=== PATIENT | female | born 1965 | race Two or more races ===

== ENCOUNTER 2020-01-16 18:14 | Inpatient (IN) | payer BC ==
[~2020-01-16] VITALS: Ht 165.1 cm; Wt 72.1 kg
[2020-01-16 18:46] VITALS: BP 103/58
--- NOTE | 2020-01-16 18:52 | NUR ---
ED Nurse Note: Patient walked in to ER from home due to upper abd pain, N/V, denyed diarrhea. Patient stated has fever on and off for one week. Patient presented weak, AAO x4, VSS at this time, skin is dry warm to touch. ER MD at bed side.
--- NOTE | 2020-01-16 18:58 | Emergency Room Report ---
History of Present Illness General Chief Complaint: Nausea Source: Patient Present Illness HPI Patient is a 54-year-old female who presents after increased right-sided abdominal pain. Reports of increased dysuria. States that she is postmenopausal. Denies any recent sick contacts. Reports having worsening abdominal discomfort and subjective fever. States has been sick for approximately 3 days. Allergies: Coded Allergies: No Known Allergies (Verified Allergy, Unknown, 12/16/09) COVID-19 Screening Contact w/high risk pt: No Recent Travel to affected area: No Experienced COVID-19 symptoms?: Yes COVID-19 symptoms experienced: Fever (T>100.4F or >38C), Flu-Like Symptoms COVID-19 Testing performed BRAND DEVELOPMENT MANAGER: No Patient History Past Medical History: see triage record Last Menstrual Period: UNK Now: No Reviewed Nursing Documentation: PMH: Agreed; PSxH: Agreed Nursing Documentation-PMH Past Medical History: No Stated History Review of Systems All Other Systems: negative except mentioned in HPI Physical Exam Vital Signs Date Time Temp Pulse Resp B/P (MAP) Pulse Ox O2 Delivery O2 Flow Rate FiO2 01/16/20 18:35 99.1 101 16 103/58 (73) 97 Room Air Sp02 EP Interpretation: reviewed, normal General Appearance: normal inspection, well appearing, no apparent distress, alert, GCS 15 Head: atraumatic ENT: normal ENT inspection, hearing grossly normal, normal voice Neck: normal inspection, full range of motion, supple, no bony tend Respiratory: normal inspection, lungs clear, normal breath sounds, no respiratory distress, no retraction, no wheezing Cardiovascular #1: regular rate, rhythm, no edema Gastrointestinal: normal inspection, normal bowel sounds, non tender, soft, no guarding, no hernia Genitourinary: no CVA tenderness Musculoskeletal: normal inspection, back normal, normal range of motion Neurologic: alert, motor strength/tone normal, dining service supervisor III-XII nml as tested, oriented x3, responsive, speech normal, normal inspection Psychiatric: normal inspection, judgement/insight normal, mood/affect normal Medical Decision Making Diagnostic Impression: Primary Impression: Pyelonephritis ER Course Patient presented for abdominal pain. Differential diagnoses included ischemic bowel, appendicitis, perforated viscus, abdominal aortic aneurysm, inferior myocardial infarction, viral gastroenteritis among others.Because patient's complexity imaging studies, and laboratory testing ordered. Patient was given IV fluids as well as IV antiemetics. Laboratory testing showed . Electrolytes normal Lipase was normal White blood count was slightly elevated. CT of the abdomen pelvis showed: Right-sided renal mass versus pyelonephritis no findings to suggest acute appendicitis irregular heterogeneous uterus with endometrial thickening bladder wall thickening which may represent cystitis. Dr. Sahu was contacted for inpatient management due to panel physician. Labs Test 01/16/20 19:12 White Blood Count 14.1 K/UL (4.8-10.8) Red Blood Count 5.59 M/UL (4.20-5.40) Hemoglobin 9.3 G/DL (12.0-16.0) Hematocrit 33.3 % (37.0-47.0) Mean Corpuscular Volume 60 FL (80-99) Mean Corpuscular Hemoglobin 16.6 PG (27.0-31.0) Mean Corpuscular Hemoglobin Concent 27.9 G/DL (32.0-36.0) Red Cell Distribution Width 18.3 % (11.6-14.8) Platelet Count 333 K/UL (150-450) Mean Platelet Volume 7.4 FL (6.5-10.1) Neutrophils (%) (Auto) % (45.0-75.0) Lymphocytes (%) (Auto) % (20.0-45.0) Monocytes (%) (Auto) % (1.0-10.0) Eosinophils (%) (Auto) % (0.0-3.0) Basophils (%) (Auto) % (0.0-2.0) Prothrombin Time 11.8 SEC (9.30-11.50) Prothromb Time International Ratio 1.1 (0.9-1.1) Activated Partial Thromboplast Time 30 SEC (23-33) Urine Color Yellow Urine Appearance Slightly cloudy Urine pH 6 (4.5-8.0) Urine Specific [place] 1.020 (1.005-1.035) Urine Protein 3+ (NEGATIVE) Urine Glucose (UA) 4+ (NEGATIVE) Urine Ketones 4+ (NEGATIVE) Urine Blood 5+ (NEGATIVE) Urine Nitrite Negative (NEGATIVE) Urine Bilirubin Negative (NEGATIVE) Urine Urobilinogen 4 MG/DL (0.0-1.0) Urine Leukocyte Esterase 2+ (NEGATIVE) Urine RBC 20-30 /HPF (0 - 2) Urine WBC 10-15 /HPF (0 - 2) Urine Squamous Epithelial Cells Moderate /LPF (NONE/OCC) Urine Bacteria Moderate /HPF (NONE) Sodium Level 134 MMOL/L (136-145) Potassium Level 4.3 MMOL/L (3.5-5.1) Chloride Level 93 MMOL/L (98-107) Carbon Dioxide Level 24 MMOL/L (21-32) Anion Gap 17 mmol/L (5-15) Blood Urea Nitrogen 20 mg/dL (7-18) Creatinine 0.9 MG/DL (0.55-1.30) Estimat Glomerular Filtration Rate > 60 mL/min (>60) Glucose Level 352 MG/DL (74-106) Calcium Level 10.0 MG/DL (8.5-10.1) Total Bilirubin 0.6 MG/DL (0.2-1.0) Aspartate Amino Transf (AST/SGOT) 20 U/L (15-37) Alanine Aminotransferase (ALT/SGPT) 22 U/L (12-78) Alkaline Phosphatase 141 U/L (46-116) Total Protein 8.4 G/DL (6.4-8.2) Albumin 2.6 G/DL (3.4-5.0) Globulin 5.8 g/dL Albumin/Globulin Ratio 0.4 (1.0-2.7) Lipase 245 U/L (73-393) Last Vital Signs Date Time Temp Pulse Resp B/P (MAP) Pulse Ox O2 Delivery O2 Flow Rate FiO2 01/16/20 18:46 99.1 16 103/58 97 Room Air 01/16/20 18:35 101 Status: unchanged Disposition: ADMITTED INPATIENT Condition: Stable Referrals: NOT CHOSEN IPA/,REFERRING (PCP) Дмитрий Mcallister MD Jan 16, 2020 18:58
[2020-01-16] MEDS ORDERED: Omnipaque-300 100ml vial INJ PRN (19:00)
--- NOTE | 2020-01-16 19:17 | NUR ---
ED Nurse Note: Report recieved from BRY Coreas.
--- NOTE | 2020-01-16 19:17 | NUR ---
ED Nurse Note: Blood and urine sample collected and sent to lab.
[2020-01-16 19:46] LABS: INR 1.1 (0.9-1.1)
[2020-01-16 19:48] LABS: ANION GAP 17 mmol/L (5-15); BLOOD UREA NITROGEN 20 mg/dL (7-18); CARBON DIOXIDE 24 MMOL/L (21-32); CHLORIDE 93 MMOL/L (98-107); CREATININE 0.9 MG/DL (0.55-1.30); POTASSIUM 4.3 MMOL/L (3.5-5.1); SODIUM 134 MMOL/L (136-145)
[2020-01-16 19:51] LABS: APPEARANCE,URINE SLIGHTLY CLOUDY; BILIRUBIN, URINE NEGATIVE (NEGATIVE); NITRITE,URINE NEGATIVE (NEGATIVE)
[2020-01-16 19:54] LABS: ALANINE AMINOTRANSFERASE 22 U/L (12-78); ALBUMIN 2.6 G/DL (3.4-5.0); ALBUMIN/GLOBULIN RATIO 0.4 (1.0-2.7); ALKALINE PHOSPHATASE 141 U/L (46-116); ASPARTATE AMINO TRANSFERASE 20 U/L (15-37); BILIRUBIN,TOTAL 0.6 MG/DL (0.2-1.0)
[2020-01-16 20:05] LABS: GLUCOSE, URINE (UA) 4+ (NEGATIVE); KETONES,URINE 4+ (NEGATIVE); LEUKOCYTE ESTERASE ,URINE 2+ (NEGATIVE); PH,URINE 6 (4.5-8.0); PROTEIN,URINE 3+ (NEGATIVE); UROBILINOGEN,URINE 4 MG/DL (0.0-1.0)
[2020-01-16 20:13] LABS: HEMATOCRIT 33.3 % (37.0-47.0); HEMOGLOBIN 9.3 G/DL (12.0-16.0); MEAN CORPUSCULAR VOLUME 60 FL (80-99); PLATELET COUNT 333 K/UL (150-450); RED BLOOD COUNT 5.59 M/UL (4.20-5.40); RED CELL DISTRIBUTION WIDTH 18.3 % (11.6-14.8); WHITE BLOOD COUNT 14.1 K/UL (4.8-10.8)
--- NOTE | 2020-01-16 20:13 | NUR ---
ED Nurse Note: PT taken to CT via WC.
--- NOTE | 2020-01-16 20:25 | NUR ---
ED Nurse Note: PT Returned back from CT
[2020-01-16 20:30] LABS: COLOR,URINE YELLOW
[2020-01-16] MEDS ORDERED: Piperacillin/Tazobactam 3.375 GM in NS 110 ML IVPB ONE (20:30)
[2020-01-16] MEDS ORDERED: cefTRIAXone 1 GM in NS 55 ML IVPB ONE (20:45)
[2020-01-16 20:59] VITALS: BP 110/60
--- NOTE | 2020-01-16 20:59 | NUR ---
ED Nurse Note: pt seen in bed resting, no acute distress is noted. VSS as documented
--- NOTE | 2020-01-16 21:04 | Diagnostic Imaging Report ---
EXAM: CT Abdomen and Pelvis With Intravenous Contrast CLINICAL HISTORY: ABD PAIN TECHNIQUE: Axial computed tomography images of the abdomen and pelvis with intravenous contrast. CTDI is 7 mGy and DLP is 415 mGy-cm. One or more of the following dose reduction techniques were used: automated exposure control, adjustment of the mA and/or kV according to patient size, use of iterative reconstruction technique. COMPARISON: 12/15/09, report for images was not provided. FINDINGS: Artifacts: Mildly degraded by motion. Lung bases: Unremarkable. No mass. No consolidation. ABDOMEN: Liver: Somewhat lobular marginated low attenuation lesion in the posterior inferior right hepatic lobe is without significant change. Gallbladder and bile ducts: Unremarkable. No calcified stones. No ductal dilation. Pancreas: Unremarkable. No mass. No ductal dilation. Spleen: Splenomegaly with the spleen measuring up to 15 cm in long axis. Adrenals: Unremarkable. No mass. Kidneys and ureters: A round lesion in the medial left lower renal pole measuring 29 mm is slightly hyperattenuating to water density measuring approximately 33 HU. There is an irregular region of low attenuation in the anterior mid and left lower renal pole that is indeterminate for irregularity due to pyelonephritis or a solid mass. Area of abnormality extends a significant region of the left kidney. There is adjacent, associated mild stranding in the adjacent perinephric region. No hydronephrosis. Stomach and bowel: Unremarkable. No obstruction. No mucosal thickening. PELVIS: Appendix: No findings to suggest acute appendicitis. Bladder: Bladder wall thickening with reticulation is present. Reproductive: The uterus is diffusely heterogeneous. The central portion including the region of the endometrium is also significantly heterogeneous with what appears to be endometrial thickening measuring up to 31 mm. Endometrial mass cannot be excluded. Recommend nonemergent pelvic ultrasound and GROUP THERAPIST consultation. ABDOMEN and PELVIS: Intraperitoneal space: Unremarkable. No free air. No significant fluid collection. Bones/joints: No acute fracture. No dislocation. Soft tissues: Unremarkable. Vasculature: Unremarkable. No abdominal aortic aneurysm. Lymph nodes: Unremarkable. No enlarged lymph nodes. IMPRESSION: 1. Moderate to large area of irregular low attenuation in the left kidney with adjacent perinephric stranding. Findings may reflect a region of pyelonephritis. Mass lesion cannot be excluded. The only clinical information provided was "pain". Follow-up renal protocol imaging is recommended as mass lesion cannot be excluded. Apparently cystic lesion left kidney can also be evaluated with dedicated renal protocol imaging. 2. Irregular heterogeneous uterus with endometrial thickening with recommendation for nonemergent GROUP THERAPIST consultation and pelvic ultrasound. 3. Bladder wall thickening with reticulation is indeterminate but may reflect cystitis for which laboratory and clinical correlation is required. <MYCVCSECTION> Communications: 01/16/20 21:07 Verify Receipt Verified receipt with NII Sue going to Dr Mcallister on 01/15 21:07 (-07:00)
--- NOTE | 2020-01-16 23:11 | NUR ---
ED Nurse Note: report given to BRY felder. endorsed plan of care.
--- NOTE | 2020-01-16 23:23 | NUR ---
ED Nurse Note: Received report from BRY Booker. patient in [facility] complaining of no distress at this moment, will continue to monitor
[2020-01-16 23:41] VITALS: BP 118/70
[2020-01-17] VITALS (7 sets, daily range): BP systolic 107–121; BP diastolic 45–73
--- NOTE | 2020-01-17 00:38 | NUR ---
ED Nurse Note: PATIENT AMBULATED TO BATHROOM WITH STEADY GAIT. PATIENT BACK IN TO BED WITHOUT INCIDENT. REPOSITIONED FOR COMFORT; PROVIDED WITH WARM BLANKETS AND PILLOWS. WILL CONTINUE TO MONITOR.
--- NOTE | 2020-01-17 01:26 | NUR ---
NURSE NOTES: Received report from Torito Qiuntanilla, ED RN. Pt arrived in the unit at 0141 via [place]. Pt's VS is stable at arrival. AOx4; able to make needs known. Yakut speaking but can understand and speak [place]. Patient's belongings checked off and signed by the patient and the primary RN. Pt denies any pain at this time. No signs of acute distress noted. Pt is stable on the feet and is able to go to the restroom by herself. Checked IV site; patent and flushed. No erythema, bleeding, or infiltration noted. Bed at lowest position. Brakes on. Siderails up x3. Call light within reach. Pt oriented to the room. Will continue to monitor.
[2020-01-17] MEDS ORDERED: Milk of Magnesia 30ml Ud ORAL PRN (01:30)
--- NOTE | 2020-01-17 01:30 | NUR ---
TRANSFER TO FLOOR: Patient transferred to [facility] 314-1 as ordered, per roseann sanches. Report given to raulito marroquin. Patient in stable condition. patient transported to unit via wheelchair with [employer]. belongings and admission packet sent with patient.
--- NOTE | 2020-01-17 03:30 | NUR ---
NURSE NOTES: RN clarified US renal order from MD Sahu and received TO to change the US renal order from Stat to Routine. Order read back and carried out. [employer] made aware.
[2020-01-17] MEDS: Piperacillin/Tazobactam 3.375 GM in NS 110 ML IVPB SCH ×3 (03:52→20:24)
[2020-01-17] MEDS: NovoLOG Insulin Flexpen SUBQ SCH ×4 (06:14→20:42)
[2020-01-17] MEDS ORDERED: NovoLOG Insulin Flexpen SUBQ SCH (06:30)
[2020-01-17 07:14] LABS: % IRON SATURATION 7 % (15-50); HEMATOCRIT 25.6 % (37.0-47.0); HEMOGLOBIN 7.5 G/DL (12.0-16.0); IRON 17 ug/dL (50-175); MEAN CORPUSCULAR VOLUME 58 FL (80-99); PLATELET COUNT 276 K/UL (150-450); RED BLOOD COUNT 4.43 M/UL (4.20-5.40); RED CELL DISTRIBUTION WIDTH 15.5 % (11.6-14.8); TOTAL IRON BINDING CAPACITY 231 ug/dL (250-450); WHITE BLOOD COUNT 12.4 K/UL (4.8-10.8)
[2020-01-17 07:18] LABS: ALANINE AMINOTRANSFERASE 13 U/L (12-78); ALBUMIN 1.9 G/DL (3.4-5.0); ALBUMIN/GLOBULIN RATIO 0.4 (1.0-2.7); ALKALINE PHOSPHATASE 102 U/L (46-116); ANION GAP 15 mmol/L (5-15); ASPARTATE AMINO TRANSFERASE 15 U/L (15-37); BILIRUBIN,TOTAL 0.5 MG/DL (0.2-1.0); CALCIUM 8.7 MG/DL (8.5-10.1); CARBON DIOXIDE 22 MMOL/L (21-32); CHLORIDE 101 MMOL/L (98-107); CREATININE 0.6 MG/DL (0.55-1.30); POTASSIUM 3.9 MMOL/L (3.5-5.1); SODIUM 138 MMOL/L (136-145)
[2020-01-17 07:24] LABS: BLOOD UREA NITROGEN 14 mg/dL (7-18)
--- NOTE | 2020-01-17 07:25 | NUR ---
HAND-OFF: Report given to BRY Doty. Pt is awake and in stable condition. Plan of care endorsed.
--- NOTE | 2020-01-17 07:30 | NUR ---
NURSE NOTES: Received report from BRY Gutierrez. Patient in bed, awake. On room air, no signs of distress or labored breathing. IV intact, patent, and infusing IV fluids and antibiotics. Bed in lowest position with call light in reach. Will continue with plan of care.
[2020-01-17] MEDS: Heparin 5000 units/ml inj SUBQ SCH ×2 (08:54→20:23)
--- NOTE | 2020-01-17 08:54 | Diagnostic Imaging Report ---
EXAM: US Retroperitoneal Limited, Renal CLINICAL HISTORY: MASS TECHNIQUE: Real-time limited ultrasound of the retroperitoneum with image documentation. COMPARISON: CT of the abdomen and pelvis dated 12/16/19. FINDINGS: Aorta: Visualized portions of the aorta appear unremarkable. Inferior vena cava: Visualized portions of the IVC appear unremarkable. Right kidney: Right kidney length of 13.2 x 7.9 x 5.5 cm. Normal cortical thickness. No visible parenchymal lesions. No visible stones. No hydronephrosis. Left kidney: 2.9 x 2.7 x 2.5 cm complex hypoechoic cyst in the left lower renal pole with subtle internal septation and possible nodularity. Left kidney length of 13.7 x 8.1 x 7.7 cm. Normal cortical thickness. No visible stones. No hydronephrosis. Bladder: 8.1 x 6.5 cm mass lesion seen in the central pelvis was labeled as " urinary bladder" on the provided images, but in comparison to the CT exam from the prior day this may instead represents the heterogeneous right adnexal lesion or possibly heterogeneous uterus seen on that exam. Urinary bladder appeared normal on the recent CT exam. It is likely the urinary bladder was contracted/decompressed on today's exam and therefore remains incompletely evaluated. IMPRESSION: 1. 8.1 x 6.5 cm mass lesion seen in the central pelvis was labeled as " urinary bladder" on the provided images, but in comparison to the CT exam from the prior day this may instead represent the heterogeneous right adnexal lesion or possibly heterogeneous uterus seen on that exam. Urinary bladder appeared normal on the recent CT exam. It is likely the urinary bladder was contracted/decompressed on today's exam and therefore remains incompletely evaluated. If this is indeed the urinary bladder than this may represent a bladder mass or luminal debris. Recommend further evaluation with contrast-enhanced CT or CT urogram if available. 2. 2.9 x 2.7 x 2.5 cm complex hypoechoic cyst in the left lower renal pole with subtle internal septation and possible nodularity. This has features of a Bosniak category IIF or category III cyst. This can also be further characterized with a contrast-enhanced CT or MRI is performed.
[2020-01-17] MEDS ORDERED: Omnipaque-300 100ml vial INJ PRN (13:45)
--- NOTE | 2020-01-17 14:40 | NUR ---
CASE MANAGEMENT:INITIAL REVIEW 54 YR OLD FEMALE FROM HOME CC;NAUSEA SI;PYELONEPHRITIS. POSSIBLE MASS. 99.1 101 16 103/58 97% ON RA WBC 14.1 H/H 9.3/33.3 NA 134 CL 93 BUN 20 BG 352 ALK PHOS 141 ALB 2.6 PT 11.8 UA+ PROTEIN, GLUCOSE, KETONES, BLOOD, UROBILI, LEUKOCYTE, RBC, WBC, BACTERIA ABD/PELVIS US W/CONTRAST ~ Moderate to large area of irregular low attenuation in the left kidney with adjacent perinephric stranding. Findings may reflect a region of pyelonephritis. Mass lesion cannot be excluded. IS;ZOFRAN IV ONCE PEPCID IV ONCE IVF NS BOLUS ZOSYN IV ONCE ROCEPHIN IV ONCE ADMITTED TO MED SURG 3E 3E MED SURG STATUS DCP;PATIENT IS FROM HOME
--- NOTE | 2020-01-17 15:39 | NUR ---
NURSE NOTES: Notified Dr. Sahu of patient's fever 102.2. Awaiting orders. Charge nurse aware.
[2020-01-17] MEDS: 1/2NS w/KCl 20mEq 1000ml 1,000 ML IV SCH ×2 (15:46→22:44)
--- NOTE | 2020-01-17 16:05 | NUR ---
NURSE NOTES: Notified covering Dr. Frida CARABALLO of patient's fever. Awaiting response.
--- NOTE | 2020-01-17 16:15 | NUR ---
NURSE NOTES: Order given by Dr. Galicia. Confirmed with Dr. Sahu in person. Will carry out. Charge nurse aware.
[2020-01-17] MEDS ORDERED: Gadavist 7.5mMol/7.5ml vial IV PRN (16:45)
--- NOTE | 2020-01-17 19:33 | NUR ---
HAND-OFF: Report given to BRY Jasso. Rounds done, patient stable.
--- NOTE | 2020-01-17 20:00 | NUR ---
Received report from BRY Doty. Patient laying in bed. On room air, no distress noted, Breathing regular and unlabored. IV Left AC 20G. Bed in lowest position with call light in reach. Will continue to monitor.
[2020-01-17] MEDS: Iron Sucrose 100 MG in NS 55 ML IV SCH (20:22)
--- NOTE | 2020-01-17 21:30 | Consultation ---
DATE OF CONSULTATION: 01/17/2020 NEPHROLOGY CONSULTATION CONSULTING PHYSICIAN: Usama Travis MD. REFERRING PHYSICIAN: Esdras Sahu MD. REASON FOR CONSULTATION: Possible pyelonephritis and/or renal mass. HISTORY OF PRESENT ILLNESS: The patient is admitted to the hospital with some suprapubic and right and left flank pain and possible pyelonephritis. She has had sweats and chills at home. The patient does not have history of recurrent UTIs. She has some heavy menses intermittently irregular and is perimenopausal. The patient has otherwise been in good health; however, she did have a prior hospitalization apparently for an ovarian infection and had a surgical procedure to drain the pus at that time. ALLERGIES: None known. MEDICATIONS: Garm-zqe-otphbyd Advil or similar pain relievers. SURGERIES: For infected ovary. HABITS: She is a nondrinker and nonsmoker. No use of illicit drugs. SYSTEM REVIEW: HEAD, EYES, EARS, NOSE, THROAT: Vision and hearing is good. ENDOCRINE: No known diabetes or thyroid disease. PULMONARY: No asthma, TB, or cough. CARDIAC: No angina, [place], or palpitations. GASTROINTESTINAL: History of recurrent nausea and vomiting over the last few days. No history of ulcers or GI bleeding. GENITOURINARY: See above. NEUROLOGIC: No CVA or syncope. PHYSICAL EXAMINATION: GENERAL: The patient is an alert lady, in no acute distress. VITAL SIGNS: Temperature 97.1, pulse 96, respiratory rate 19, blood pressure 107/63. HEAD, EYES, EARS, NOSE, THROAT: Sclerae are nonicteric. Ocular motions intact in all directions. Oral mucosa moist. NECK: No adenopathy. LUNGS: Clear. HEART: Regular rhythm. No murmur. ABDOMEN: Soft. I am unable to feel liver or spleen. There is no focal tenderness. No rebound. There is no CVA tenderness. EXTREMITIES: No edema, cyanosis, or clubbing. NEUROLOGIC: She is alert and oriented. Cranial nerves are intact. PERTINENT LABORATORY DATA: White count 14.1, repeat 12.4; hemoglobin 9.3, repeat 7.5 with microcytic indices. BUN 20, creatinine 0.9; repeat 14 and 0.6 with normal electrolytes. Iron saturation 7%. 141 and 102. Albumin 1.9, low. TSH 0.34. IMAGING: CT of abdomen and pelvis with contrast shows a jbqcxymo-kv-txkup area of irregular low attenuation in the left kidney with perinephric stranding and irregular heterogeneous uterus with endometrial thickening. The ultrasound shows a left kidney with a 2.9 x 2.7 x 2.5 complex hypoechoic cysts in the lower pole and there was concern in the ultrasound that there may be a heterogeneous right adnexal lesion or possibly heterogeneous uterus. IMPRESSION: 1. Possible UTI and pyelonephritis. 2. Renal mass, as above. 3. Possible uterine abnormality as noted on imaging. 4. Iron-deficiency anemia. 5. Glucose 352 and 303, likely diabetes undiagnosed in the past. Note, she has 4+ glucose in the urine and 4+ ketones. 6. Moderate protein-calorie malnutrition with low serum albumin. PLAN: At this time, we will hydrate the patient with lly-usfsfuqp-itnsipfvzy fluids and give empiric antibiotics. Follow up on her labs and we will get dedicated renal imaging for the above. We will also give intravenous iron. This was discussed with the patient. Usama Travis M.D. : Ernst JOB#: [id number] CC:
--- NOTE | 2020-01-17 23:08 | General Progress Note ---
Assessment/Plan Assessment/Plan: GI CONSULT Dictated Assessment - Iron deficiency anemia - LUQ abd pain - nausea/vomiting, anorexia - pelvic abnormalities on CT Recommendations - Acid Blockade - Agree with IV Fe - will arrange for EGD +/- colonoscopy Mond - VULNERABILITY ASSESSMENT ANALYST/Urology w/u of pelvic abnormalities Subjective Allergies: Coded Allergies: No Known Allergies (Verified Allergy, Unknown, 12/16/09) Objective Last 24 Hour Vital Signs Date Time Temp Pulse Resp B/P (MAP) Pulse Ox O2 Delivery O2 Flow Rate FiO2 01/17/20 21:00 Room Air 01/17/20 18:07 101.5 01/17/20 17:22 101.5 01/17/20 16:00 102.5 94 20 107/54 (71) 98 01/17/20 12:00 102.2 98 21 118/59 (78) 97 01/17/20 09:00 Room Air 01/17/20 08:00 97.1 96 19 107/63 (78) 97 01/17/20 04:00 98.9 97 16 120/67 (84) 97 01/17/20 01:41 98.9 95 18 114/59 (77) 97 01/17/20 01:38 Room Air 01/17/20 01:30 98.9 83 16 122/72 98 Room Air 01/17/20 01:00 98.9 76 14 121/73 99 Room Air 01/16/20 23:41 98.9 83 16 118/70 98 Room Air Intake and Output 01/16/20 01/17/20 19:00 07:00 Intake Total 1565 ml Balance 1565 ml Intake Oral 300 ml IV Total 1265 ml # Voids 1 1 Laboratory Tests 01/17/20 05:15: White Blood Count 12.4H, Red Blood Count 4.43, Hemoglobin 7.5L, Hematocrit 25.6L , Mean Corpuscular Volume 58L, Mean Corpuscular Hemoglobin 17.0L, Mean Corpuscular Hemoglobin Concent 29.4L, Red Cell Distribution Width 15.5H, Platelet Count 276, Mean Platelet Volume 5.8L, Neutrophils (%) (Auto) , Lymphocytes (%) (Auto) , Monocytes (%) (Auto) , Eosinophils (%) (Auto) , Basophils (%) (Auto) , Differential Total Cells Counted 100, Neutrophils % ( Manual) 76H, Lymphocytes % (Manual) 15L, Monocytes % (Manual) 8, Eosinophils % ( Manual) 1, Basophils % (Manual) 0, Band Neutrophils 0, Platelet Estimate Adequate, Platelet Morphology Normal, Hypochromasia 3+, Anisocytosis 1+, Microcytosis 4+, Sodium Level 138, Potassium Level 3.9, Chloride Level 101, Carbon Dioxide Level 22, Anion Gap 15, Blood Urea Nitrogen 14, Creatinine 0.6, Estimat Glomerular Filtration Rate > 60, Glucose Level 303H, Hemoglobin A1c 15.5H, Calcium Level 8.7, Iron Level 17L, Total Iron Binding Capacity 231L, Percent Iron Saturation 7L, Unsaturated Iron Binding 214, Total Bilirubin 0.5, Aspartate Amino Transf (AST/SGOT) 15, Alanine Aminotransferase (ALT/SGPT) 13, Alkaline Phosphatase 102, Total Protein 6.5, Albumin 1.9L, Globulin 4.6, Albumin /Globulin Ratio 0.4L, Thyroid Stimulating Hormone (TSH) 0.384 Height (Feet): 5 Height (Inches): 5.00 Weight (Pounds): 142 Blanca Archer MD Jan 17, 2020 23:08
[2020-01-18] VITALS: BP 109/58
[2020-01-18 04:00] VITALS: BP 116/64
--- NOTE | 2020-01-18 04:45 | History and Physical Report ---
DATE OF ADMISSION: 01/16/2020 REASON FOR ADMISSION: Fevers, abdominal pain, and possible abdominal mass. HISTORY OF PRESENT ILLNESS: This is a 54-year-old white female, who presented to the emergency room complaining of flank pain bilaterally and some suprapubic discomfort. She noted chills and fevers at home, but no specific fevers. She has not had any hematuria. She does have menometrorrhagia and says she is perimenopausal and notes irregular menses as a result. She has had a history of an ovarian type of infection and required surgical drainage at 1 time in the past otherwise. PAST MEDICAL HISTORY: Unremarkable. MEDICATIONS: Advil. ALLERGIES: None known. SOCIAL HISTORY: Negative for smoking, alcohol, or substance abuse. FAMILY HISTORY: Noncontributory. REVIEW OF SYSTEMS: The patient notes 4 to 5 days of very poor appetite taking in only liquids due to nausea and anorexia. She denies dysphagia or vomiting. She denies diarrhea. Otherwise, all systems negative. The patient denies any known history of diabetes mellitus, although she does have an elevated blood sugar level. Otherwise, all systems negative other than noted above. PHYSICAL EXAMINATION: VITAL SIGNS: Temperature 99.1, blood pressure 103/58, heart rate 101, respiratory rate 16, oxygen saturation on room air 97%. HEENT: Conjunctivae pink. Sclerae are anicteric. Oropharynx clear. Mucous membranes moist. NECK: Supple. Jugular venous pressure normal. LUNGS: Clear. CARDIAC: Regular. Normal S1, S2 with no murmur, rub, or gallop. ABDOMEN: Soft, no hepatosplenomegaly. No focal tenderness, guarding, rebound, or CVA tenderness. EXTREMITIES: No clubbing, cyanosis, or edema. NEUROLOGIC: Nonfocal. LABORATORY AND DIAGNOSTIC DATA: White count 14, hemoglobin 9.3, platelet count 333,000. MCV 60. Sodium 134, potassium 4.3, chloride 93, BUN 20, creatinine 0.9, bicarb 24, glucose 352, calcium 10, albumin 2.6. Urinalysis with 20 to 30 red cells, 10 to 15 white cells with moderate bacteria. INR 1.1. CT of the abdomen and pelvis revealed moderate to large area of irregular low attenuation in the left kidney with perinephric stranding, irregular heterogeneous uterus with thickening of the endometrium. The ultrasound of the kidney shows complex cyst in the lower pole on the left and possible right adnexal lesion or heterogenous uterus versus bladder mass. IMPRESSION: 1. Urinary tract infection and possible pyelonephritis. 2. Possible renal mass versus bladder mass versus ovarian lesion, which may be related to prior infection. 3. Uterine fibroids and endometrial thickening. 4. Iron deficiency anemia. 5. Type 2 diabetes mellitus, undiagnosed. 6. Protein-calorie malnutrition, moderate to severe. PLAN: 1. IV fluid hydration. 2. Empiric antimicrobials. 3. Iron replacement. 4. Further imaging and diagnostic studies with consultations to follow. 5. CA-125 level will be checked as well. 6. Empiric proton pump inhibitor. Esdras Sahu M.D. DR: LACEY JOB#: [id number] CC:
[2020-01-18] MEDS: Piperacillin/Tazobactam 3.375 GM in NS 110 ML IVPB SCH ×3 (05:00→21:23)
--- NOTE | 2020-01-18 05:00 | Progress Note ---
DATE: 01/17/2020 INTERNAL MEDICINE PROGRESS NOTE SUBJECTIVE: The patient feels slightly better today, still with poor appetite. She has had fevers up to 102.5. PHYSICAL EXAMINATION: VITAL SIGNS: Blood pressure 107/54, heart rate 94, respirations 20, oxygen saturation room air 97%. LUNGS: Clear. CARDIAC: Regular. Normal S1, S2. ABDOMEN: Soft. No focal tenderness, guarding or rebound. No CVA tenderness. EXTREMITIES: No edema. LABORATORY DATA: Repeat labs notable for sodium 138, potassium 3.9, bicarb 22, BUN 14, creatinine 0.6, glucose 303, hemoglobin A1c 15, iron saturation 7%, albumin 1.9. TSH normal. White count 12.4, hemoglobin 7.5. IMPRESSION: 1. Iron-deficiency anemia. Possible bladder versus renal mass versus possible ovarian structural abnormality. 2. Possible pyelonephritis and urinary tract infection. 3. Severe protein-calorie malnutrition. 4. Undiagnosed diabetes mellitus. PLAN: 1. Insulin coverage. 2. Oral hypoglycemics. 3. Endocrine consult. 4. MRI of the abdomen and pelvis. 5. Endoscopy planned. 6. Further diagnostic studies for the abdominal mass to follow. 7. Continue empiric antimicrobials and hydration. 8. Defer transfusion at this time. Esdras Sahu M.D. DR: LACEY JOB#: [id number] CC:
[2020-01-18 06:00] LABS: HEMATOCRIT 24.7 % (37.0-47.0); HEMOGLOBIN 7.3 G/DL (12.0-16.0); MEAN CORPUSCULAR VOLUME 58 FL (80-99); PLATELET COUNT 282 K/UL (150-450); RED BLOOD COUNT 4.26 M/UL (4.20-5.40); WHITE BLOOD COUNT 8.2 K/UL (4.8-10.8)
--- NOTE | 2020-01-18 06:00 | Consultation ---
DATE OF CONSULTATION: 01/17/2020 CONSULTING PHYSICIAN: Blanca Archer MD CHIEF COMPLAINT: I was asked to see this patient by Dr. Esdras Sahu for evaluation of iron deficiency anemia and gastrointestinal symptoms. HISTORY OF PRESENT ILLNESS: The patient is a pleasant 54-year-old woman who comes into the hospital due to her complaints. The patient states that she has had some anorexia and nausea. She feels that she had some pains. She complains of some left upper quadrant abdominal soreness with some periodic vomiting. She had no diarrhea, but she has had some sweats. She denies any urinary complaints. She has never had endoscopy or colonoscopy in the past. The CT scan, however, shows some pelvic abnormality suggestive of either gynecological or urological mass or malignancy. There are some enhanced images again done to further evaluate these findings. PAST MEDICAL HISTORY: Otherwise unremarkable. ALLERGIES: None. FAMILY HISTORY: Negative for significant disorders. SOCIAL HISTORY: The patient does not smoke or drink alcohol. She is and she has 8 children. REVIEW OF SYSTEMS: Otherwise negative. PHYSICAL EXAMINATION: GENERAL: This is a pleasant woman, seen in her room. HEENT: Normocephalic and atraumatic. Sclerae anicteric. Oropharynx clear. NECK: Supple. LUNGS: Clear to auscultation. CARDIOVASCULAR: Revealed a regular rate. ABDOMEN: Soft. There is no significant tenderness or masses. EXTREMITIES: Revealed no edema. LABORATORY AND DIAGNOSTIC DATA: Laboratory data and imaging studies were noted. ASSESSMENT: This patient presents with significant degree of microcytic anemia. This could potentially be menstrual, but given her abdominal symptoms with severe anemia and her age, she should undergo endoscopy and colonoscopy to evaluate the upper and lower GI tract with typical pathologies which can cause iron deficiency anemia. She does have some pelvic findings on the imaging studies, but I believe these are likely related to her gynecological or urological organs and should be evaluated separately. In the meantime, the patient should be treated with acid blockade. RECOMMENDATIONS: 1. Continue acid blockade. 2. Endoscopy and possible colonoscopy on Sunday. 3. Follow up with pelvic mass lesions on enhanced imaging. 4. We will follow with you. Thank you for asking me to participate in the care of this patient. Blanca Archer M.D. DR: FRANCOISE JOB#: [id number] CC: DEANNA
[2020-01-18] MEDS: 1/2NS w/KCl 20mEq 1000ml 1,000 ML IV SCH ×3 (06:23→21:24)
[2020-01-18 06:25] LABS: ALANINE AMINOTRANSFERASE 18 U/L (12-78); ALBUMIN 1.8 G/DL (3.4-5.0); ALBUMIN/GLOBULIN RATIO 0.4 (1.0-2.7); ALKALINE PHOSPHATASE 121 U/L (46-116); ANION GAP 11 mmol/L (5-15); ASPARTATE AMINO TRANSFERASE 20 U/L (15-37); BILIRUBIN,TOTAL 0.5 MG/DL (0.2-1.0); BLOOD UREA NITROGEN 5 mg/dL (7-18); CALCIUM 8.2 MG/DL (8.5-10.1); CARBON DIOXIDE 24 MMOL/L (21-32); CHLORIDE 102 MMOL/L (98-107); CREATININE 0.5 MG/DL (0.55-1.30); SODIUM 137 MMOL/L (136-145)
[2020-01-18] MEDS: NovoLOG Insulin Flexpen SUBQ SCH ×4 (06:25→21:00)
--- NOTE | 2020-01-18 07:20 | NUR ---
NURSE NOTES: Report received from Yulissa RN, rounds made. Patient resting at bedside, AOx4 calm. On clear liquids diet. IV (1/2 NS +20 KCL at 125 ml/hr) to LAC, site asymptomatic. Reminded patient on need for stool OB specimen. No SOB, pain, NV. Call light in reach, bed in lowest position, will continue to monitor.
--- NOTE | 2020-01-18 07:29 | NUR ---
HAND-OFF: Report given to BRY Lima. Pt in stable condition. Pt had no BM. OB stool not collected passed on to the next nurse.
--- NOTE | 2020-01-18 07:50 | NUR ---
NURSE NOTES: Message left for Dr. Sahu regarding HH 7.3/24.7.
[2020-01-18 08:00] VITALS: BP 116/55
[2020-01-18] MEDS ORDERED: Sorbitol Solution UD 30ml ORAL ONE (08:00)
--- NOTE | 2020-01-18 08:20 | NUR ---
NURSE NOTES: Obtained stool OB, sent to lab.
[2020-01-18] MEDS: Heparin 5000 units/ml inj SUBQ SCH (09:00)
--- NOTE | 2020-01-18 10:15 | NUR ---
NURSE NOTES: Dr. Sahu notified of HH 7.3/24.7, orders to hold Heparin.
[2020-01-18 12:00] VITALS: BP 117/69
[2020-01-18] MEDS ORDERED: Bisacodyl EC 5mg tab ORAL SCH (12:15)
[2020-01-18] MEDS ORDERED: Nulytely 4L ORAL SCH (12:30)
--- NOTE | 2020-01-18 13:32 | Nephrology Progress Note ---
Assessment/Plan Problem List: (1) UTI (urinary tract infection) (2) Malnutrition of moderate degree (3) Diabetes (4) Renal mass (5) Pyelonephritis Plan continue hydration, ct urogram and pelvic US 01/18 Subjective Constitutional: Reports: weakness HEENT: Reports: no symptoms Genitourinary: Reports: pain Neurologic/Psychiatric: Reports: no symptoms Objective Objective Last 24 Hour Vital Signs Date Time Temp Pulse Resp B/P (MAP) Pulse Ox O2 Delivery O2 Flow Rate FiO2 01/18/20 12:00 99.3 87 21 117/69 (85) 97 01/18/20 08:00 98.9 88 21 116/55 (75) 97 01/18/20 04:00 98.4 18 116/64 (81) 98 01/18/20 00:57 99.3 01/18/20 00:57 99.3 01/18/20 00:00 101.2 89 18 109/58 (75) 97 01/17/20 21:00 Room Air 01/17/20 20:00 98.2 89 18 112/45 (67) 94 01/17/20 18:07 101.5 01/17/20 16:00 102.5 94 20 107/54 (71) 98 Intake and Output 01/17/20 01/18/20 19:00 07:00 Intake Total 2725.0 ml 1370 ml Balance 2725.0 ml 1370 ml Intake Oral 1440 ml 120 ml IV Total 1285.0 ml 1250 ml # Voids 2 1 Laboratory Tests 01/18/20 05:25: White Blood Count 8.2, Red Blood Count 4.26, Hemoglobin 7.3L, Hematocrit 24.7L, Mean Corpuscular Volume 58L, Mean Corpuscular Hemoglobin 17.0L, Mean Corpuscular Hemoglobin Concent 29.3L, Red Cell Distribution Width 16.0H, Platelet Count 282, Mean Platelet Volume 5.7L, Neutrophils (%) (Auto) , Lymphocytes (%) (Auto) , Monocytes (%) (Auto) , Eosinophils (%) (Auto) , Basophils (%) (Auto) , Differential Total Cells Counted 100, Neutrophils % ( Manual) 75, Lymphocytes % (Manual) 18L, Monocytes % (Manual) 3, Eosinophils % ( Manual) 4H, Basophils % (Manual) 0, Band Neutrophils 0, Platelet Estimate Adequate, Platelet Morphology Normal, Hypochromasia 2+, Anisocytosis 1+, Microcytosis 2+, Sodium Level 137, Potassium Level 4.0, Chloride Level 102, Carbon Dioxide Level 24, Anion Gap 11, Blood Urea Nitrogen 5L, Creatinine 0.5L, Estimat Glomerular Filtration Rate > 60, Glucose Level 263H, Calcium Level 8.2L , Magnesium Level 1.8, Total Bilirubin 0.5, Aspartate Amino Transf (AST/SGOT) 20 , Alanine Aminotransferase (ALT/SGPT) 18, Alkaline Phosphatase 121H, Total Protein 6.3L, Albumin 1.8L, Globulin 4.5, Albumin/Globulin Ratio 0.4L, Lipase 317, CA 125 Antigen [Pending] 01/18/20 08:10: Stool Occult Blood [Pending] Height (Feet): 5 Height (Inches): 5.00 Weight (Pounds): 142 General Appearance: no apparent distress, alert EENT: normal ENT inspection Neck: normal alignment Cardiovascular: normal rate Respiratory/Chest: lungs clear Abdomen: non tender, soft Extremities: no edema Neurologic: tele marketing executive II-XII grossly normal Usama Travis MD Jan 18, 2020 13:32
[2020-01-18] MEDS ORDERED: Ampicillin 1 GM in NS 55 ML IVPB SCH (14:30)
[2020-01-18 16:00] VITALS: BP 117/68
[2020-01-18] MEDS ORDERED: Levemir Flexpen SUBQ SCH (16:15)
--- NOTE | 2020-01-18 16:17 | General Progress Note ---
Assessment/Plan Assessment/Plan: Assessment - Iron deficiency anemia - LUQ abd pain - nausea/vomiting, anorexia - pelvic abnormalities on CT Recommendations - Acid Blockade - IV Fe - will arrange for EGD + Colonoscopy Sunday - SOLAR POWER INSTALLER/Urology w/u of pelvic abnormalities Subjective Allergies: Coded Allergies: No Known Allergies (Verified Allergy, Unknown, 12/16/09) Objective Last 24 Hour Vital Signs Date Time Temp Pulse Resp B/P (MAP) Pulse Ox O2 Delivery O2 Flow Rate FiO2 01/18/20 16:00 98.8 90 21 117/68 (84) 97 01/18/20 12:00 99.3 87 21 117/69 (85) 97 01/18/20 09:00 Room Air 01/18/20 08:00 98.9 88 21 116/55 (75) 97 01/18/20 04:00 98.4 18 116/64 (81) 98 01/18/20 00:57 99.3 01/18/20 00:57 99.3 01/18/20 00:00 101.2 89 18 109/58 (75) 97 01/17/20 21:00 Room Air 01/17/20 20:00 98.2 89 18 112/45 (67) 94 01/17/20 18:07 101.5 Intake and Output 01/17/20 01/18/20 19:00 07:00 Intake Total 2725.0 ml 1370 ml Balance 2725.0 ml 1370 ml Intake Oral 1440 ml 120 ml IV Total 1285.0 ml 1250 ml # Voids 2 1 Laboratory Tests 01/18/20 05:25: White Blood Count 8.2, Red Blood Count 4.26, Hemoglobin 7.3L, Hematocrit 24.7L, Mean Corpuscular Volume 58L, Mean Corpuscular Hemoglobin 17.0L, Mean Corpuscular Hemoglobin Concent 29.3L, Red Cell Distribution Width 16.0H, Platelet Count 282, Mean Platelet Volume 5.7L, Neutrophils (%) (Auto) , Lymphocytes (%) (Auto) , Monocytes (%) (Auto) , Eosinophils (%) (Auto) , Basophils (%) (Auto) , Differential Total Cells Counted 100, Neutrophils % ( Manual) 75, Lymphocytes % (Manual) 18L, Monocytes % (Manual) 3, Eosinophils % ( Manual) 4H, Basophils % (Manual) 0, Band Neutrophils 0, Platelet Estimate Adequate, Platelet Morphology Normal, Hypochromasia 2+, Anisocytosis 1+, Microcytosis 2+, Sodium Level 137, Potassium Level 4.0, Chloride Level 102, Carbon Dioxide Level 24, Anion Gap 11, Blood Urea Nitrogen 5L, Creatinine 0.5L, Estimat Glomerular Filtration Rate > 60, Glucose Level 263H, Calcium Level 8.2L , Magnesium Level 1.8, Total Bilirubin 0.5, Aspartate Amino Transf (AST/SGOT) 20 , Alanine Aminotransferase (ALT/SGPT) 18, Alkaline Phosphatase 121H, Total Protein 6.3L, Albumin 1.8L, Globulin 4.5, Albumin/Globulin Ratio 0.4L, Lipase 317, CA 125 Antigen [Pending] 01/18/20 08:10: Stool Occult Blood [Pending] Height (Feet): 5 Height (Inches): 5.00 Weight (Pounds): 142 Blanca Archer MD Jan 18, 2020 16:17
--- NOTE | 2020-01-18 17:00 | NUR ---
NURSE NOTES: Instructed patient verbally and demonstrated on how to check blood sugar/administer insulin, proper handwashing, rotating sites, glucose level ranges and different types of insulin (Levemir/new order and Regular/sliding scale), patient refused to participate in checking her own blood sugar.
[2020-01-18] MEDS: Levemir Flexpen SUBQ SCH (17:10)
--- NOTE | 2020-01-18 18:00 | Consultation ---
DATE OF CONSULTATION: 01/18/2020 INFECTIOUS DISEASES CONSULTATION This consult is for coverage of Dr. Tejeda. CONSULTING PHYSICIAN: Feng Dukes MD PRIMARY ATTENDING PHYSICIAN: Esdras Sahu MD. REASON FOR CONSULTATION: Sepsis, pyelonephritis. HISTORY OF PRESENT ILLNESS: The patient is a 54-year-old female admitted on 01/16/2020 because of dysuria, right abdominal pain, was found to have leukocytosis of 14.1 at the time of admission, fever in hospital up to 102.5, was found to have diabetes mellitus. PAST MEDICAL HISTORY: Unremarkable. ALLERGIES: No known drug allergies. MEDICATIONS: Getting heparin, IV iron, bisacodyl, Januvia, gadobutrol, Tylenol, Starlix, Zosyn, insulin, magnesium hydroxide, Zofran. SOCIAL HISTORY: . Denies alcohol abuse, smoking, and drug abuse. FAMILY HISTORY: Brother has diabetes mellitus. REVIEW OF SYSTEMS: The patient today denies any fever, chills, or coughing. Denies any pain. No dysuria. PHYSICAL EXAMINATION: VITAL SIGNS: Temperature 99.3, maximum temperature 101.2 at midnight, pulse 87, blood pressure 117/69. GENERAL APPEARANCE: No acute distress. HEAD AND NECK: Moist mucous membranes. [place] conjunctiva. HEART: Normal rate. LUNGS: Clear. ABDOMEN: Soft, nontender. EXTREMITIES: Some pedal edema. NEUROLOGIC: Awake, alert, oriented x3. LABORATORY AND DIAGNOSTIC DATA: Sodium 137, potassium 4, chloride 102, bicarbonate 24, BUN 5, creatinine 0.5, glucose 263. Hemoglobin A1c 15.5. Albumin in 1.8. WBC today is 8.2, hemoglobin 7.3, hematocrit 24.7, platelet is 282. UA showed wbc's of 10 to 30, rbc's of 20 to 30, leukocyte esterase 2+, ketones 4+, glucose 4+, protein 3+. Urine culture growing a strep group B and gram-negative rods. The patient had a CT scan of the abdomen and pelvis moderate to large area of irregular low attenuation in the left kidney. Findings may reflect region of pyelonephritis, heterogenous uterus, endometrial thickening, bladder wall thickening and reticulation. IMPRESSION: Sepsis with fever and leukocytosis, urinary tract infection, pyelonephritis, iron-deficiency anemia, newly diagnosed diabetes mellitus with hyperglycemia. RECOMMENDATION: Continue with Zosyn. We will follow up the cultures. The patient will have colonoscopy and EGD for workup of anemia. At the end of my exam, I thank Dr. Sahu, for involving me in the care of this patient. Feng Dukes M.D. DR: Steven JOB#: [id number] CC:
--- NOTE | 2020-01-18 18:00 | NUR ---
NURSE NOTES: Patient started Nulytely at 1510, tolerating well. Has had multiple BMs, IVF 1/2 NS +20 KCL continues at 125 ml/hr, no NV, on clear liquids, will continue to monitor.
--- NOTE | 2020-01-18 19:23 | NUR ---
HAND-OFF: Report given to Louisa LONDONO, rounds made, patient stable. Patient drank mcc through Nulytely.
--- NOTE | 2020-01-18 19:45 | Consultation ---
DATE OF CONSULTATION: 01/18/2020 ENDOCRINOLOGY CONSULTATION CONSULTING PHYSICIAN: Jonn Grove MD. REFERRING PHYSICIAN: Esdras Sahu MD. REASON FOR CONSULTATION: Diabetes management. HISTORY OF PRESENT ILLNESS: The patient is a 54-year-old female without any significant past medical history who presented to the hospital with right-sided abdominal pain, increased dysuria, and fever. The patient was diagnosed with pyelonephritis, started on antibiotic, IV fluid, and improved. CT of the abdomen with contrast suggestive of pyelonephritis, also the patient became severely anemic and she is going get a colonoscopy tomorrow. She is being prepped right now. PAST MEDICAL HISTORY: None. PAST SURGICAL HISTORY: None. FAMILY HISTORY: bother is diabetic. SOCIAL HISTORY: Denies any smoking, alcohol, or drug use. ALLERGIES TO MEDICATIONS: None. HOME MEDICATIONS: None. LABORATORY DATA: Sodium 137, potassium 4, chloride 102, bicarb 24, BUN 5, creatinine 0.5, blood glucose of 263. Hemoglobin A1c of 15.5, TSH of 0.3. Lipase of 307. WBC 8, hemoglobin 7, hematocrit 24, platelet of 282. PHYSICAL EXAMINATION: VITAL SIGNS: Blood pressure is 117/69, heart rate 87, temperature 99.3. HEENT: Pupils are equal and reactive to light to light. Sclerae anicteric. NECK: No JVD. No thyromegaly. LUNGS: Clear. HEART: Regular rate and rhythm. ABDOMEN: Positive bowel sounds. EXTREMITIES: No clubbing, cyanosis, edema. DIAGNOSES: 1. Newly diagnosed type 2 diabetes, most likely which has been going for long time. 2. Pyelonephritis. 3. Anemia. PLAN: 1. Continue Starlix 120 mg before meals t.i.d. 2. Continue Januvia 100 mg daily. 3. Once she is done with colonoscopy, we will add metformin 500 mg t.i.d. 4. Add Levemir 10 units daily, first dose now. 5. Hypoglycemia protocol is in order. 6. Further adjustment according to blood glucose values. Thank you, Dr. Sahu, for the courtesy of this consultation. Jonn Grove M.D. DR: RN/apamador JOB#: [id number] CC: DEANNA
--- NOTE | 2020-01-18 19:50 | NUR ---
NURSE NOTES: Received report from BRY Segal. Pt A/O x4 On room air, no distress noted, Breathing regular and unlabored. IV Left AC 20G. Bed in lowest position with call light in reach. Will continue to monitor.
[2020-01-18 20:00] VITALS: BP 109/61
[2020-01-18] MEDS ORDERED: Iron Sucrose 100 MG in NS 55 ML IV SCH (21:00)
[2020-01-18] MEDS: Iron Sucrose 100 MG in NS 55 ML IV SCH (21:23)
[2020-01-18] MEDS: D5 1/2NS w/KCl 20mEq 1,000 ML IV SCH (23:50)
[2020-01-19] VITALS (11 sets, daily range): BP systolic 99–136; BP diastolic 46–70
--- NOTE | 2020-01-19 00:45 | Progress Note ---
DATE: 01/18/2020 INTERNAL MEDICINE PROGRESS NOTE SUBJECTIVE: Patient had some blood from her rectum today. She denies any discomfort. She was seen by director corporate security and diabetic therapy was adjusted. She was seen by infectious disease solar energy consultant and designer and is to be continuing her current antimicrobials for presumed urinary infection. She was seen by GI attending and bowel prep is in progress for panendoscopy. PHYSICAL EXAMINATION: VITAL SIGNS: Blood pressure 117/69, heart rate 87, respirations 21, temperature 99.3. LUNGS: Clear. CARDIAC: Regular. No murmur. ABDOMEN: Soft. No focal tenderness. EXTREMITIES: No edema. LABORATORY DATA: White count 8.2, hemoglobin 7.3. Potassium 4, BUN 5, creatinine 0.5. IMPRESSION: 1. Iron deficiency anemia. 2. GI bleeding. 3. Possible bladder versus ovarian versus renal mass. 4. Severe protein-calorie malnutrition. 5. Newly diagnosed diabetes mellitus. PLAN: 1. Await panendoscopy. 2. MRI of the abdomen to follow. 3. IV iron. 4. Reassess for transfusion. 5. CA-125 pending. 6. IV antimicrobials and hydration for now. Esdras Sahu M.D. DR: Rony JOB#: [id number] CC:
[2020-01-19] MEDS: Piperacillin/Tazobactam 3.375 GM in NS 110 ML IVPB SCH (04:26)
--- NOTE | 2020-01-19 04:40 | NUR ---
NURSE NOTES: Pt signed consent for Endoscopy and colonoscopy with possible biopsy, polypectomy, hemostasis and dilation.
[2020-01-19] MEDS: NovoLOG Insulin Flexpen SUBQ SCH ×4 (05:42→20:56)
[2020-01-19 06:24] LABS: HEMATOCRIT 24.8 % (37.0-47.0); HEMOGLOBIN 7.2 G/DL (12.0-16.0); MEAN CORPUSCULAR VOLUME 58 FL (80-99); PLATELET COUNT 366 K/UL (150-450); RED BLOOD COUNT 4.28 M/UL (4.20-5.40); RED CELL DISTRIBUTION WIDTH 15.8 % (11.6-14.8); WHITE BLOOD COUNT 8.6 K/UL (4.8-10.8)
[2020-01-19] MEDS: D5 1/2NS w/KCl 20mEq 1,000 ML IV SCH ×3 (06:26→20:55)
--- NOTE | 2020-01-19 06:30 | NUR ---
NURSE NOTES: Informed Dr. Archer in regard to pt bowel return mostly yellowish/clear with little sediments of bm. advised its okay.
[2020-01-19 06:34] LABS: ANION GAP 10 mmol/L (5-15); BLOOD UREA NITROGEN 2 mg/dL (7-18); CALCIUM 7.8 MG/DL (8.5-10.1); CARBON DIOXIDE 24 MMOL/L (21-32); CHLORIDE 101 MMOL/L (98-107); CREATININE 0.6 MG/DL (0.55-1.30); POTASSIUM 3.6 MMOL/L (3.5-5.1); SODIUM 135 MMOL/L (136-145)
[2020-01-19] MEDS ORDERED: DiphenhydrAMINE 50mg/ml Inj IVP PRN (06:45)
[2020-01-19] MEDS ORDERED: Atropine Sulfate 0.4mg/ml inj IVP PRN (06:45)
[2020-01-19] MEDS ORDERED: Midazolam 2mg/2ml Inj IVP PRN (06:45)
[2020-01-19] MEDS ORDERED: fentaNYL 100 mcg/2 mL IV PRN (06:45)
--- NOTE | 2020-01-19 07:30 | NUR ---
NURSE NOTES: Received report from Louisa LONDONO, rounds made , pt awake, and waiting to go for her procedure , pt denies any pain, IVF on L AC , patent asymptomatic , bed in low locked position, call light with in teach will continue with plan of care
--- NOTE | 2020-01-19 07:34 | NUR ---
HAND-OFF: Report given to Felecia Butts. Pt Stable.
--- NOTE | 2020-01-19 07:57 | NUR ---
NURSE NOTES: pt picked up via [facility] and taken for her colonoscopy
[2020-01-19] MEDS ORDERED: Lidocaine 1% MPF 10mg/ml 5ml ONE (08:00)
--- NOTE | 2020-01-19 08:04 | General Progress Note ---
Assessment/Plan Problem List: (1) Pyelonephritis ICD Codes: N12 - Tubulo-interstitial nephritis, not specified as acute or chronic SNOMED: 39039694 (2) Diabetes ICD Codes: E11.9 - Type 2 diabetes mellitus without complications SNOMED: 41092304 Assessment/Plan: continue Levemir 10 units daily continue Starlix 120 mg ac tid continue Januvia 100 mg daily continue Novolog sliding scale ac / hs Subjective Allergies: Coded Allergies: No Known Allergies (Verified Allergy, Unknown, 12/16/09) All Systems: reviewed and negative except above Subjective glucose values improved NPO and going for colonoscopy this morning Item Value Date Time Bedside Blood Glucose 177 mg/dl H 01/19/20 0543 Bedside Blood Glucose 96 mg/dl 01/18/20 2100 Bedside Blood Glucose 97 mg/dl 01/18/20 1710 Bedside Blood Glucose 162 mg/dl H 01/18/20 1219 Bedside Blood Glucose 242 mg/dl H 01/18/20 0625 Objective Last 24 Hour Vital Signs Date Time Temp Pulse Resp B/P (MAP) Pulse Ox O2 Delivery O2 Flow Rate FiO2 01/19/20 04:00 97.3 18 119/63 (81) 96 01/19/20 00:00 98.0 18 112/65 (81) 98 01/18/20 21:00 Room Air 01/18/20 20:00 98.8 18 109/61 (77) 95 01/18/20 16:00 98.8 90 21 117/68 (84) 97 01/18/20 12:00 99.3 87 21 117/69 (85) 97 01/18/20 09:00 Room Air Intake and Output 01/18/20 01/19/20 19:00 07:00 Intake Total 3730 ml 3025 ml Balance 3730 ml 3025 ml Intake Oral 2480 ml 2150 ml IV Total 1250 ml 875 ml # Voids 8 7 # Bowel Movements 7 7 Laboratory Tests 01/18/20 08:10: Stool Occult Blood [Pending] 01/19/20 05:25: White Blood Count 8.6, Red Blood Count 4.28, Hemoglobin 7.2L, Hematocrit 24.8L, Mean Corpuscular Volume 58L, Mean Corpuscular Hemoglobin 16.9L, Mean Corpuscular Hemoglobin Concent 29.2L, Red Cell Distribution Width 15.8H, Platelet Count 366, Mean Platelet Volume 5.2L, Neutrophils (%) (Auto) , Lymphocytes (%) (Auto) , Monocytes (%) (Auto) , Eosinophils (%) (Auto) , Basophils (%) (Auto) , Sodium Level 135L, Potassium Level 3.6, Chloride Level 101, Carbon Dioxide Level 24, Anion Gap 10, Blood Urea Nitrogen 2L, Creatinine 0.6, Estimat Glomerular Filtration Rate > 60, Glucose Level 201H, Calcium Level 7.8L Height (Feet): 5 Height (Inches): 5.00 Weight (Pounds): 142 General Appearance: no apparent distress Neck: normal alignment Cardiovascular: normal rate Respiratory/Chest: lungs clear Abdomen: normal bowel sounds Pelvis: normal external exam Objective Current Medications Medications (Trade) Dose Ordered Sig/Remedios Route PRN Reason Start Time Stop Time Status Last Admin Dose Admin Acetaminophen (Tylenol) 650 mg Q4H PRN ORAL Temp >100.5 01/17/20 16:15 02/16/20 16:14 01/18/20 00:27 Acetaminophen (Tylenol) 650 mg Q4H PRN ORAL Mild Pain (Pain Scale 1-3) 01/17/20 16:45 02/16/20 16:44 Acetaminophen (Tylenol) 650 mg Q4H PRN ORAL Mild Pain (Pain Scale 1-3) 01/19/20 06:45 01/19/20 12:45 Al Hydroxide/Mg Hydroxide (Mylanta) 15 ml Q1H PRN ORAL gi upset 01/19/20 06:45 01/19/20 12:45 Atropine Sulfate (Atropine 0.4mg/ ml) 0.5 mg Q5M PRN IVP bpm less than 45 01/19/20 06:45 01/19/20 12:45 Barium Sulfate (Readi-Cat 2) 450 ml NOW PRN ORAL Radiology Procedure 01/17/20 13:45 01/19/20 13:35 Dextrose (Dextrose 50%) 25 ml Q30M PRN IV Hypoglycemia 01/18/20 16:15 04/17/20 16:14 Dextrose (Dextrose 50%) 50 ml Q30M PRN IV Hypoglycemia 01/18/20 16:15 04/17/20 16:14 Dextrose/ Electrolytes 1,000 ml @ 125 mls/hr Q8H IV 01/18/20 23:00 02/17/20 22:59 01/19/20 06:26 Diphenhydramine HCl (Benadryl) 25 mg Q15M PRN IVP Itching 01/19/20 06:45 01/19/20 12:45 Famotidine (Pepcid) 20 mg DAILY ORAL 01/17/20 09:00 04/16/20 08:59 01/18/20 08:54 Fentanyl Citrate (Sublimaze 100 mcg/2 mL) 25 mcg Q10M PRN IV Moderate Pain (Pain Scale 4-6) 01/19/20 06:45 01/19/20 12:45 Gadobutrol (Gadavist) 7.5 mmol ONCE PRN IV radiology procedure 01/17/20 16:45 01/20/20 16:44 Heparin Sodium (Porcine) (Heparin 5000 units/ml) 5,000 units EVERY 12 HOURS SUBQ 01/19/20 09:00 03/04/20 08:59 Hydralazine HCl (Apresoline) 5 mg Q30M PRN IV SBP>160 /DBP>90 01/19/20 06:45 01/19/20 12:45 Insulin Aspart (NovoLOG) BEFORE MEALS AND HS SUBQ 01/17/20 06:30 04/16/20 06:29 01/19/20 05:42 Insulin Detemir (Levemir) 10 units DAILY SUBQ 01/18/20 17:00 04/17/20 16:59 01/18/20 17:10 Iohexol (OMNIPAQUE-300 100ml) 100 ml NOW PRN INJ Radiology Procedure 01/17/20 13:45 01/19/20 13:35 Iron Sucrose 100 mg/Sodium Chloride 60 ml @ 240 mls/hr BEDTIME IV 01/17/20 21:00 01/21/20 21:14 01/18/20 21:23 Magnesium Hydroxide (Mom) 30 ml DAILYPRN PRN ORAL Constipation 01/17/20 01:30 02/16/20 01:29 Midazolam HCl (Versed 2mg/2ml vial) 1 mg Q15M PRN IVP For Anxiety 01/19/20 06:45 01/19/20 12:45 Nateglinide (Starlix) 120 mg TIAC ORAL 01/17/20 16:30 02/16/20 16:29 01/19/20 05:39 Ondansetron HCl (Zofran) 4 mg Q1H PRN IVP Nausea & Vomiting 01/19/20 06:45 01/19/20 12:45 Ondansetron HCl (Zofran) 4 mg Q6H PRN IVP Nausea & Vomiting 01/17/20 01:30 02/16/20 01:29 Piperacillin Sod/ Tazobactam Sod 3.375 gm/Sodium Chloride 110 ml @ 27.5 mls/hr Q8H IVPB 01/17/20 04:00 01/24/20 03:59 01/19/20 04:26 Sitagliptin Phosphate (Januvia) 100 mg ACBREAKFAST ORAL 01/18/20 06:30 02/17/20 06:29 01/19/20 05:39 Sodium Chloride 1,000 ml @ 10 mls/hr Q24H IVLG 01/19/20 06:40 01/19/20 08:39 Jonn Grove MD Jan 19, 2020 08:04
[2020-01-19] MEDS ORDERED: NS 500ML IVPB ONE ×2 (08:05→08:30)
--- NOTE | 2020-01-19 08:10 | General Progress Note ---
Assessment/Plan Assessment/Plan: Assessment - Iron deficiency anemia - LUQ abd pain - nausea/vomiting, anorexia - pelvic mass / abnormalities on CT Recommendations - Acid Blockade - IV Fe - EGD + Colonoscopy Today - w/u of pelvic abnormalities Subjective Allergies: Coded Allergies: No Known Allergies (Verified Allergy, Unknown, 12/16/09) Subjective feels OK (++) BM with prep no BRBPR no vomiting Objective Last 24 Hour Vital Signs Date Time Temp Pulse Resp B/P (MAP) Pulse Ox O2 Delivery O2 Flow Rate FiO2 01/19/20 04:00 97.3 18 119/63 (81) 96 01/19/20 00:00 98.0 18 112/65 (81) 98 01/18/20 21:00 Room Air 01/18/20 20:00 98.8 18 109/61 (77) 95 01/18/20 16:00 98.8 90 21 117/68 (84) 97 01/18/20 12:00 99.3 87 21 117/69 (85) 97 01/18/20 09:00 Room Air Intake and Output 01/18/20 01/19/20 19:00 07:00 Intake Total 3730 ml 3025 ml Balance 3730 ml 3025 ml Intake Oral 2480 ml 2150 ml IV Total 1250 ml 875 ml # Voids 8 7 # Bowel Movements 7 7 Laboratory Tests 01/19/20 05:25: White Blood Count 8.6, Red Blood Count 4.28, Hemoglobin 7.2L, Hematocrit 24.8L, Mean Corpuscular Volume 58L, Mean Corpuscular Hemoglobin 16.9L, Mean Corpuscular Hemoglobin Concent 29.2L, Red Cell Distribution Width 15.8H, Platelet Count 366, Mean Platelet Volume 5.2L, Neutrophils (%) (Auto) , Lymphocytes (%) (Auto) , Monocytes (%) (Auto) , Eosinophils (%) (Auto) , Basophils (%) (Auto) , Sodium Level 135L, Potassium Level 3.6, Chloride Level 101, Carbon Dioxide Level 24, Anion Gap 10, Blood Urea Nitrogen 2L, Creatinine 0.6, Estimat Glomerular Filtration Rate > 60, Glucose Level 201H, Calcium Level 7.8L Height (Feet): 5 Height (Inches): 5.00 Weight (Pounds): 142 Objective WNWD NCAT supple CTA RRR Abd soft no edema nonfocal Khorrami,Payman MD Jan 19, 2020 08:10
--- NOTE | 2020-01-19 08:11 | Pre-Procedure Note/Attestation ---
Pre-Procedure Note/Attestation Complete Prior to Procedure Planned Procedure: not applicable Procedure Narrative: esophagogastroduodenoscopy colon Indications for Procedure Pre-Operative Diagnosis: anemia Attestation I attest that I discussed the nature of the procedure; its benefits; risks and complications; and alternatives (and the risks and benefits of such alternatives ), prior to the procedure, with the patient (or the patient's legal insurance follow up representative). I attest that, if there was a reasonable possibility of needing a blood transfusion, the patient (or the patient's legal insurance follow up representative) was given the [facility] standardized written summary, pursuant to the Gopi Darling Blood Safety Act ([place] Health and Safety Code # 1645, as amended). I attest that I re-evaluated the patient just prior to the surgery and that there has been no change in the patient's H&P, except as documented below: Blanca Archer MD Jan 19, 2020 08:10
--- NOTE | 2020-01-19 08:34 | Anethesia Preoperative Eval ---
Anesthesia Pre-op PMH/ROS General Date of Evaluation: Jan 19, 2020 Time of Evaluation: 07:42 Anesthesiologist: cindy ASA Score: ASA 3 Mallampati Score Class I : Soft palate, uvula, fauces, pillars visible Class II: Soft palate, uvula, fauces visible Class III: Soft palate, base of uvula visible Class IV: Only hard plate visible Mallampati Classification: Class II Surgeon: gopi Diagnosis: anemia Surgical Procedure: egd/colonoscopy Anesthesia History: none Family History: no anesthesia problems Allergies: Coded Allergies: No Known Allergies (Verified Allergy, Unknown, 12/16/09) Medications: see eMAR Patient NPO?: Yes Past Medical History Gastrointestinal/Genitourinary: Reports: other - uti, pyelonephritis, renal mass Endocrine: Reports: DM Hematology/Immune: Reports: anemia Anesthesia Pre-op Phys. Exam Physician Exam Last Vital Signs Date Time Temp Pulse Resp B/P (MAP) Pulse Ox O2 Delivery O2 Flow Rate FiO2 01/19/20 04:00 97.3 18 119/63 (81) 96 01/18/20 21:00 Room Air 01/18/20 16:00 90 Constitutional: NAD Neurologic: CN 2-12 intact Cardiovascular: RRR Respiratory: CTA Gastrointestinal: S/NT/ND Airway Exam Mallampati Score: Class II MO: limited Neck: flexible TMD: 2fb ROM: limited Anesthesia Pre-op A/P Labs Hematology Test 01/19/20 05:25 White Blood Count 8.6 K/UL (4.8-10.8) Red Blood Count 4.28 M/UL (4.20-5.40) Hemoglobin 7.2 G/DL (12.0-16.0) L Hematocrit 24.8 % (37.0-47.0) L Mean Corpuscular Volume 58 FL (80-99) L Mean Corpuscular Hemoglobin 16.9 PG (27.0-31.0) L Mean Corpuscular Hemoglobin Concent 29.2 G/DL (32.0-36.0) L Red Cell Distribution Width 15.8 % (11.6-14.8) H Platelet Count 366 K/UL (150-450) Mean Platelet Volume 5.2 FL (6.5-10.1) L Neutrophils (%) (Auto) % (45.0-75.0) Lymphocytes (%) (Auto) % (20.0-45.0) Monocytes (%) (Auto) % (1.0-10.0) Eosinophils (%) (Auto) % (0.0-3.0) Basophils (%) (Auto) % (0.0-2.0) Chemistry Test 01/19/20 05:25 Sodium Level 135 MMOL/L (136-145) L Potassium Level 3.6 MMOL/L (3.5-5.1) Chloride Level 101 MMOL/L (98-107) Carbon Dioxide Level 24 MMOL/L (21-32) Anion Gap 10 mmol/L (5-15) Blood Urea Nitrogen 2 mg/dL (7-18) L Creatinine 0.6 MG/DL (0.55-1.30) Estimat Glomerular Filtration Rate > 60 mL/min (>60) Glucose Level 201 MG/DL (74-106) H Calcium Level 7.8 MG/DL (8.5-10.1) L Risk Assessment & Plan Assessment: asa3 Plan: mac Status Change Before Surgery: No Pre-Antibiotics Drug: Yulia Escobar MD Jan 19, 2020 08:34
--- NOTE | 2020-01-19 08:49 | Endoscopy Procedure Note ---
Endoscopy Procedure Note General Indication for Procedure: anemia Procedures Performed: EGD, colonoscopy Operative Findings/Diagnosis: GERD-ulcerative, gastritis, gastric polyp, duodenitis, rhoids Specimen: yes Pt Tolerated Procedure Well: Yes Estimated Blood Loss: none Anesthesia Anesthesiologist: ceasar prajapati Anesthesia: MAC Medications Medication Given: see anesthesia record Inserted Devices Implant(s) used?: No GI Core Measures 50 yrs or older w/o bx or poly: Not Applicable 10yrs. F/U recommended: Not Applicable If not recommended, why?: Blanca Archer MD Jan 19, 2020 08:49
--- NOTE | 2020-01-19 08:51 | Brief Operative Note ---
Immediate Post Operative Note Operative Note Chief Complaint: anemia Pre-op Diagnosis: anemia Procedure: esophagogastroduodenoscopy/bx, colon/ no bx Post-op Diagnosis: gerd/ulcerative, gastritis, duodenitis, rhoid Surgeon: gopi Anesthesiologist: ceasar prajapati Anesthesia: MAC Specimen: yes Complications: none Condition: stable Fluids: per anesthesia Estimated Blood Loss: none Drains: none Implant(s) used?: No Blanca Archer MD Jan 19, 2020 08:51
--- NOTE | 2020-01-19 09:03 | Immediate Post-Op Evaluation ---
Immediate Post-Op Evalulation Immediate Post-Op Evalulation Procedure: egd/colonoscopy w/ bx Date of Evaluation: Jan 19, 2020 Time of Evaluation: 09:00 IV Fluids: 600ml 0.9ns Blood Products: none Estimated Blood Loss: negligible Blood Pressure Systolic: 103 Blood Pressure Diastolic: 47 Pulse Rate: 96 Respiratory Rate: 18 O2 Sat by Pulse Oximetry: 98 Temperature (Fahrenheit): 98.8 Pain Score (1-10): 0 Nausea: No Vomiting: No Complications none Patient Status: awake, reacts, patent Hydration Status: adequate Drug: Yulia Escobar MD Jan 19, 2020 09:03
--- NOTE | 2020-01-19 09:27 | NUR ---
NURSE NOTES: pt came back from her procedure, escorted by recovery nurse via [facility], received report from Jeanine RN, pt stable checked vitals BP 121/69 P 95 RR20 O2sat 98 T 98.7 pt denies any pain, will continue to monitor
--- NOTE | 2020-01-19 09:41 | 48 Hour Post Anesthesia Eval ---
Post Anesthesia Evaluation Procedure: egd/colonoscopy w/ bx Date of Evaluation: Jan 19, 2020 Time of Evaluation: 09:02 Blood Pressure Systolic: 103 0: 46 Pulse Rate: 92 Respiratory Rate: 18 Temperature (Fahrenheit): 98.8 O2 Sat by Pulse Oximetry: 98 Airway: patent Nausea: No Vomiting: No Pain Intensity: 0 Hydration Status: adequate Cardiopulmonary Status: stable Mental Status/LOC: patient returned to baseline Post-Anesthesia Complications: none Follow-up care needed: N/A Yulia Perrin MD Jan 19, 2020 09:41
[2020-01-19] MEDS: Heparin 5000 units/ml inj SUBQ SCH ×2 (10:42→20:57)
[2020-01-19] MEDS: Levemir Flexpen SUBQ SCH (10:45)
--- NOTE | 2020-01-19 12:02 | Infectious Diseases Prog Note ---
"Assessment/Plan Assessment/Plan antibiotics : zosyn A 1. e.coli | group B streptococcus pyelonephritis 2. leucocytosis improving 3. anemia 4. diabetes mellitus P 1. d/c zosyn 2. start ceftriaxone 3. will follow up cultures Subjective Constitutional: Denies: fever, chills Respiratory: Denies: shortness of breath, dry cough Gastrointestinal/Abdominal: Denies: nausea, vomiting, diarrhea Musculoskeletal: Denies: pain Allergies: Coded Allergies: No Known Allergies (Verified Allergy, Unknown, 12/16/09) Objective Vital Signs Last 24 Hour Vital Signs Date Time Temp Pulse Resp B/P (MAP) Pulse Ox O2 Delivery O2 Flow Rate FiO2 01/19/20 09:41 92 18 98 01/19/20 09:40 98 01/19/20 09:31 96 18 01/19/20 09:20 98.4 93 20 99/50 96 Room Air 01/19/20 09:05 92 20 103/46 98 Nasal Cannula 3 01/19/20 09:00 Room Air 01/19/20 08:55 94 22 101/48 99 Nasal Cannula 3 01/19/20 08:50 94 23 100/51 100 Nasal Cannula 3 01/19/20 08:48 98.8 96 23 103/47 100 Nasal Cannula 3 01/19/20 04:00 97.3 18 119/63 (81) 96 01/19/20 00:00 98.0 18 112/65 (81) 98 01/18/20 21:00 Room Air 01/18/20 20:00 98.8 18 109/61 (77) 95 01/18/20 16:00 98.8 90 21 117/68 (84) 97 01/18/20 12:00 99.3 87 21 117/69 (85) 97 Height (Feet): 5 Height (Inches): 5.00 Weight (Pounds): 142 Respiratory/Chest: lungs clear Cardiovascular: normal rate, regular rhythm, no gallop/murmur Abdomen: soft, non tender Extremities: no edema Microbiology Date/Time Source Procedure Growth Status 01/16/20 19:12 Urine,Clean Catch Urine Culture - Final Escherichia Coli Streptococcus Group B Complete Laboratory Tests Test 01/19/20 05:25 White Blood Count 8.6 K/UL (4.8-10.8) Red Blood Count 4.28 M/UL (4.20-5.40) Hemoglobin 7.2 G/DL (12.0-16.0) L Hematocrit 24.8 % (37.0-47.0) L Mean Corpuscular Volume 58 FL (80-99) L Mean Corpuscular Hemoglobin 16.9 PG (27.0-31.0) L Mean Corpuscular Hemoglobin Concent 29.2 G/DL (32.0-36.0) L Red Cell Distribution Width 15.8 % (11.6-14.8) H Platelet Count 366 K/UL (150-450) Mean Platelet Volume 5.2 FL (6.5-10.1) L Neutrophils (%) (Auto) % (45.0-75.0) Lymphocytes (%) (Auto) % (20.0-45.0) Monocytes (%) (Auto) % (1.0-10.0) Eosinophils (%) (Auto) % (0.0-3.0) Basophils (%) (Auto) % (0.0-2.0) Sodium Level 135 MMOL/L (136-145) L Potassium Level 3.6 MMOL/L (3.5-5.1) Chloride Level 101 MMOL/L (98-107) Carbon Dioxide Level 24 MMOL/L (21-32) Anion Gap 10 mmol/L (5-15) Blood Urea Nitrogen 2 mg/dL (7-18) L Creatinine 0.6 MG/DL (0.55-1.30) Estimat Glomerular Filtration Rate > 60 mL/min (>60) Glucose Level 201 MG/DL (74-106) H Calcium Level 7.8 MG/DL (8.5-10.1) L Current Medications Medications (Trade) Dose Ordered Sig/Remedios Route PRN Reason Start Time Stop Time Status Last Admin Dose Admin Acetaminophen (Tylenol) 650 mg Q4H PRN ORAL Temp >100.5 01/17/20 16:15 02/16/20 16:14 01/18/20 00:27 Acetaminophen (Tylenol) 650 mg Q4H PRN ORAL Mild Pain (Pain Scale 1-3) 01/17/20 16:45 02/16/20 16:44 Acetaminophen (Tylenol) 650 mg Q4H PRN ORAL Mild Pain (Pain Scale 1-3) 01/19/20 06:45 01/19/20 12:45 Al Hydroxide/Mg Hydroxide (Mylanta) 15 ml Q1H PRN ORAL gi upset 01/19/20 06:45 01/19/20 12:45 Atropine Sulfate (Atropine 0.4mg/ ml) 0.5 mg Q5M PRN IVP bpm less than 45 01/19/20 06:45 01/19/20 12:45 Barium Sulfate (Readi-Cat 2) 450 ml NOW PRN ORAL Radiology Procedure 01/17/20 13:45 01/19/20 13:35 Dextrose (Dextrose 50%) 25 ml Q30M PRN IV Hypoglycemia 01/18/20 16:15 04/17/20 16:14 Dextrose (Dextrose 50%) 50 ml Q30M PRN IV Hypoglycemia 01/18/20 16:15 04/17/20 16:14 Dextrose/ Electrolytes 1,000 ml @ 125 mls/hr Q8H IV 01/18/20 23:00 02/17/20 22:59 01/19/20 06:26 Diphenhydramine HCl (Benadryl) 25 mg Q15M PRN IVP Itching 01/19/20 06:45 01/19/20 12:45 Famotidine (Pepcid) 20 mg DAILY ORAL 01/17/20 09:00 04/16/20 08:59 01/19/20 10:38 Fentanyl Citrate (Sublimaze 100 mcg/2 mL) 25 mcg Q10M PRN IV Moderate Pain (Pain Scale 4-6) 01/19/20 06:45 01/19/20 12:45 Gadobutrol (Gadavist) 7.5 mmol ONCE PRN IV radiology procedure 01/17/20 16:45 01/20/20 16:44 Heparin Sodium (Porcine) (Heparin 5000 units/ml) 5,000 units EVERY 12 HOURS SUBQ 01/19/20 09:00 03/04/20 08:59 01/19/20 10:42 Hydralazine HCl (Apresoline) 5 mg Q30M PRN IV SBP>160 /DBP>90 01/19/20 06:45 01/19/20 12:45 Insulin Aspart (NovoLOG) BEFORE MEALS AND HS SUBQ 01/17/20 06:30 04/16/20 06:29 01/19/20 05:42 Insulin Detemir (Levemir) 10 units DAILY SUBQ 01/18/20 17:00 04/17/20 16:59 01/19/20 10:45 Iohexol (OMNIPAQUE-300 100ml) 100 ml NOW PRN INJ Radiology Procedure 01/17/20 13:45 01/19/20 13:35 Iron Sucrose 100 mg/Sodium Chloride 60 ml @ 240 mls/hr BEDTIME IV 01/17/20 21:00 01/21/20 21:14 01/18/20 21:23 Magnesium Hydroxide (Mom) 30 ml DAILYPRN PRN ORAL Constipation 01/17/20 01:30 02/16/20 01:29 Midazolam HCl (Versed 2mg/2ml vial) 1 mg Q15M PRN IVP For Anxiety 01/19/20 06:45 01/19/20 12:45 Nateglinide (Starlix) 120 mg TIAC ORAL 01/17/20 16:30 02/16/20 16:29 01/19/20 05:39 Ondansetron HCl (Zofran) 4 mg Q1H PRN IVP Nausea & Vomiting 01/19/20 06:45 01/19/20 12:45 Ondansetron HCl (Zofran) 4 mg Q6H PRN IVP Nausea & Vomiting 01/17/20 01:30 02/16/20 01:29 Pantoprazole (Protonix) 40 mg DAILY ORAL 01/19/20 09:00 02/18/20 08:59 01/19/20 10:38 Piperacillin Sod/ Tazobactam Sod 3.375 gm/Sodium Chloride 110 ml @ 27.5 mls/hr Q8H IVPB 01/17/20 04:00 01/24/20 03:59 01/19/20 04:26 Sitagliptin Phosphate (Januvia) 100 mg ACBREAKFAST ORAL 01/18/20 06:30 02/17/20 06:29 01/19/20 05:39 Jeana Tejeda MD Jan 19, 2020 12:02"
--- NOTE | 2020-01-19 12:19 | NUR ---
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 98.4 HR 93 RR 20 B/P 103/76 NA 135 H/H 7.2/24.8 IS: CEFTRIAXONE IV IVF D5KCL@125ML/HR IRON IV HEPARIN SUBC MED/SURG STATUS
[2020-01-19] MEDS ORDERED: cefTRIAXone 1 GM in D5W 55 ML IVPB SCH (13:00)
--- NOTE | 2020-01-19 13:00 | NUR ---
MRI ABDOMEN W/WO COMPLETED.
--- NOTE | 2020-01-19 13:52 | Diagnostic Imaging Report ---
Indication: Postmenopausal bleeding, abnormal uterus demonstrated on recent CT scan Also, further sonographic evaluation of previously reported left renal parenchymal abnormalities was performed Technique: Transabdominal and transvaginal images of the pelvis. Doppler interrogation of the ovaries. Grayscale and duplex images of the left kidney Comparison: Reference made to renal sonogram dated 01/17/2020, abdomen pelvis CT scan 01/16/2020, pelvic and endovaginal ultrasound dated 12/17/2009 Findings: The uterus measures 6.7 cm in length by 6.9 cm AP. Within the posterior myometrium, there is an ovoid slightly hyperechoic mass which measures 6.2 x 5 x 7.4 cm in diameter. The endometrium measures 2 mm thick. The right ovary is questionably visualized, measures 2.4 cm length if real. The cysts left ovary measures 2.6 cm length. Both ovaries demonstrate normal flow on Doppler imaging. No free cul-de-sac fluid demonstrated. Additional images of the kidney demonstrate a 2.4 x 2.1 cm solid appearing hypervascular slightly hyperechoic structure in the upper pole. This corresponds with the upper pole abnormality demonstrated on recent CT scan. In the medial left kidney adjacent to the renal sinus. The lower pole, there is a very hypoechoic avascular lesion which measures 3.3 x 2.7 cm. This corresponds to the lower pole finding described on the recent CT scan. Impression: 6.2 x 5 x 7.4 cm central/posterior uterine myometrial mass, most likely represents a large fibroid. Unremarkable ovaries Additional images of the left kidney demonstrate a 2.4 x 2.1 hypervascular solid structure in the upper pole, corresponding to findings seen on recent CT scan. Findings are concerning for renal neoplasm. Given evidence of some hypervascularity on this exam and subsequent MRI, the possibility of arteriovenous malformation should also be considered. Recommend urology consultation Hypoechoic medial lower pole 3.3 cm lesion most likely represents a complex proteinaceous cyst, given findings on other exams. This is probably a Bosniak class IIF cyst, for which short interval follow up at 6 months is recommended.
--- NOTE | 2020-01-19 14:06 | NUR ---
*-* INSURANCE *-* ALL CLINICALS AND REVIEW HAVE BEEN FAXED TO: [facility] ([facility] of [place]) Ref# [id number] #[phone] fax#[phone]
--- NOTE | 2020-01-19 15:13 | Diagnostic Imaging Report ---
Indication: Bilateral flank pain, suprapubic discomfort, nausea Technique: Axial single shot fast spin echo breath hold, coronal single shot fast spin-echo breath hold, axial T2 FRFSE fat-saturated, 2-D thick slab MRCP, axial 2-D FIESTA fat-saturated, axial 3-D dual echo breath-hold, precontrast axial and postcontrast axial water weighted axial LAVA FLEX images of the abdomen Comparison: No comparison MRIs. Reference made to abdomen pelvis CT of earlier the same date 01/16/2020, renal sonogram dated 01/16 and 01/19/2020, subsequent abdomen pelvis CT taken later the same day Findings: There is considerable image degradation due to motion artifact. In the lower pole of left kidney, corresponding to described on prior CT and sonograms, there is a 3.4 cm lesion which is isointense to renal parenchyma on the T1-weighted images, and very slightly hyperintense with some central areas of hypointensity on the T2-weighted images. This does not demonstrate any enhancement on the postcontrast images. There is an area of decreased enhancement in the upper pole of the left kidney, corresponding to abnormalities described on prior CT scan and sonogram. This is better depicted on subsequent CT scan, and most likely represents an area of pyelonephritis rather than a mass, despite masslike appearance on recent sonogram. A simple cyst is seen in the inferior right hepatic lobe, demonstrating high T2 signal, low T1 signal, and absence of enhancement. The pancreas, spleen, adrenals are unremarkable. The coronal images include the pelvis, demonstrate low T2 signal mildly enhancing lesion within the posterior uterine myometrium displacing the endometrium anteriorly. Fluid posterior to the uterus presumably represents fluid within the rectum. Impression: Left upper pole renal lesion demonstrates overall decreased enhancement does not appear masslike on this or subsequent CT scan and most likely represents area of focal nephritis, particularly given laboratory evidence of pyelonephritis. Nonenhancing 3.4 cm left lower pole renal lesion, with complex signal characteristics on the precontrast sequences is consistent with a hemorrhagic or proteinaceous cyst, Bosniak category 2 Central mildly enhancing uterine mass, consistent with a fibroid also described on multiple prior imaging studies Simple hepatic cyst
[2020-01-19] MEDS ORDERED: Tubing IV Secondary IV ONE (16:15)
[2020-01-19] MEDS ORDERED: NS 275ml ONE (16:15)
--- NOTE | 2020-01-19 18:45 | Diagnostic Imaging Report ---
Clinical Indication: Reason For Exam: MASS Technique: No oral contrast utilized, per protocol. Precontrast spiral acquisitions obtained through the abdomen and pelvis. IV administration nonionic contrast. Multiphasic spiral acquisitions obtained through the abdomen and pelvis. Multiplanar reconstructions were generated. Total dose length product 1690 mGycm. CTDIvol(s) 8, 23, 22, 8, 8 mGy. Dose reduction achieved using automated exposure control Comparison: Single phase contrast CT dated 01/16/2020, abdomen MRI earlier the same day, renal sonogram 01/17/2020 Findings: In the lower pole of the left kidney, there is a round hypoattenuating lesion that measures 3.4 cm in diameter. On the precontrast images this demonstrates approximately 16 Hounsfield unit attenuation coefficient. This varies between 17 and 21 on subsequent phases without increase in attenuation. No definite septations, mural enhancement, or mural calcifications are visible. Is corresponds to findings reported in this location on earlier studies. In the upper pole of left kidney, there is an area of decreased enhancement On the postcontrast images, this demonstrates some contrast retention, presumably related to recent gadolinium administration. This appears hypoperfused on all phases of the exam, appears to contain a few cystic spaces as well. There is questionably a similar area in the periphery of the interpolar region and very questionably in the lower pole. No renal or ureteral calculi. No hydronephrosis or hydroureter. The right kidney is unremarkable. Again demonstrated is a cyst in the inferior right hepatic lobe. The gallbladder, bile ducts, pancreas, adrenals are all unremarkable. The spleen is mildly enlarged. The uterus is heterogeneous. Posterior uterine fundal mass is seen displacing the endometrium anteriorly, as been described on earlier studies and most likely represents a large fibroid. There is a small amount of fluid within the pelvis which is not evident previously. No adnexal mass. The appendix is normal. No free or loculated intraperitoneal gas. The distal esophagus, stomach, duodenum are unremarkable. No small bowel distention. No evidence of diverticulosis or diverticulitis. The included lung bases demonstrate small bilateral pleural effusions. There is mild interstitial congestion. Interstitial congestion is similar to the prior exam. The pleural effusions are new. Impression: Although slightly hyperattenuating, cyst in the lower pole of the left kidney does not enhance, presumably represents a proteinaceous Bosniak 2 cyst. Left upper pole renal hypoperfusion again noted, appearance suggestive of acute nephritis. This also correlates with findings on previous exams. Uterine fundal mass, presumably a large fibroid, also previously reported Small amount of fluid within the pelvis, not evident previously Small bilateral pleural effusions, not evident previously Splenomegaly, also previously described Mild basilar pulmonary interstitial congestion Incidental finding of right lobe hepatic cyst The CT scanner at [facility] is accredited by the [employer] and the scans are performed using protocols designed to limit radiation exposure to as low as reasonably achievable to attain images of sufficient resolution adequate for diagnostic evaluation. Contrast
--- NOTE | 2020-01-19 19:25 | NUR ---
HAND-OFF: Report given to Erickson pt ryan.
--- NOTE | 2020-01-19 20:00 | NUR ---
NURSE NOTES: Received patient asleep in bed, easily arousable, no s/s of acute distress. Attempted patient teaching on disease process, patient unreceptive, will re-attempt with printed materials. IV access patent, running IVF maintenance, dressing dry and intact.
--- NOTE | 2020-01-19 20:15 | Nephrology Progress Note ---
Assessment/Plan Problem List: (1) UTI (urinary tract infection) (2) Malnutrition of moderate degree (3) Diabetes (4) Renal mass (5) Pyelonephritis Plan continue hydration,mriLeft upper pole renal lesion demonstrates overall decreased enhancement does not appear masslike on this or subsequent CT scan and most likely represents area of focal nephritis, particularly given laboratory evidence of pyelonephritis. Nonenhancing 3.4 cm left lower pole renal lesion, with complex signal characteristics on the precontrast sequences is consistent with a hemorrhagic or proteinaceous cyst, Bosniak category 2 continue diabetic teaching and antibiotics Subjective Constitutional: Reports: no symptoms HEENT: Reports: no symptoms Genitourinary: Reports: no symptoms Neurologic/Psychiatric: Reports: no symptoms Objective Objective Last 24 Hour Vital Signs Date Time Temp Pulse Resp B/P (MAP) Pulse Ox O2 Delivery O2 Flow Rate FiO2 01/19/20 16:00 98.3 87 18 112/62 (79) 97 01/19/20 09:41 92 18 98 01/19/20 09:40 98 01/19/20 09:31 96 18 01/19/20 09:20 98.4 93 20 99/50 96 Room Air 01/19/20 09:05 92 20 103/46 98 Nasal Cannula 3 01/19/20 09:00 Room Air 01/19/20 08:55 94 22 101/48 99 Nasal Cannula 3 01/19/20 08:50 94 23 100/51 100 Nasal Cannula 3 01/19/20 08:48 98.8 96 23 103/47 100 Nasal Cannula 3 01/19/20 08:00 98.7 58 20 136/70 (92) 98 01/19/20 04:00 97.3 18 119/63 (81) 96 01/19/20 00:00 98.0 18 112/65 (81) 98 01/18/20 21:00 Room Air Intake and Output 01/18/20 01/19/20 19:00 07:00 Intake Total 3730 ml 3150 ml Balance 3730 ml 3150 ml Intake Oral 2480 ml 2150 ml IV Total 1250 ml 1000 ml # Voids 8 7 # Bowel Movements 7 7 Laboratory Tests 01/19/20 05:25: White Blood Count 8.6, Red Blood Count 4.28, Hemoglobin 7.2L, Hematocrit 24.8L, Mean Corpuscular Volume 58L, Mean Corpuscular Hemoglobin 16.9L, Mean Corpuscular Hemoglobin Concent 29.2L, Red Cell Distribution Width 15.8H, Platelet Count 366, Mean Platelet Volume 5.2L, Neutrophils (%) (Auto) , Lymphocytes (%) (Auto) , Monocytes (%) (Auto) , Eosinophils (%) (Auto) , Basophils (%) (Auto) , Sodium Level 135L, Potassium Level 3.6, Chloride Level 101, Carbon Dioxide Level 24, Anion Gap 10, Blood Urea Nitrogen 2L, Creatinine 0.6, Estimat Glomerular Filtration Rate > 60, Glucose Level 201H, Calcium Level 7.8L Height (Feet): 5 Height (Inches): 5.00 Weight (Pounds): 142 General Appearance: no apparent distress EENT: normal ENT inspection Neck: normal alignment Cardiovascular: normal rate Respiratory/Chest: lungs clear Abdomen: soft Extremities: trace edema 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
[2020-01-19] MEDS: Iron Sucrose 100 MG in NS 55 ML IV SCH (20:54)
--- NOTE | 2020-01-19 22:15 | Procedure Note ---
DATE OF PROCEDURE: 01/19/2020 GASTROENTEROLOGY PROCEDURE REPORT PROCEDURE: Upper gastrointestinal endoscopy with biopsy as well as colonoscopy. SURGEON: Blanca Archer MD. ANESTHESIA: Please see the separate anesthesiologist notes for details. PRE-ENDOSCOPIC DIAGNOSES: 1. Iron deficiency anemia. 2. Nausea and vomiting. POST-ENDOSCOPIC DIAGNOSES: 1. Severe ulcerative esophagitis with erosions and ulcers in the lower esophagus. 2. Mild gastritis. 3. Mild duodenitis. 4. Internal hemorrhoids. DESCRIPTION OF PROCEDURE: The procedure, risks, indications, alternatives, and possible complications were explained to the patient and informed consent was obtained. The patient was then sedated in the left lateral decubitus position and a diagnostic upper endoscope was introduced through oropharynx and advanced to the duodenum without difficulty. Examination of the upper gastrointestinal mucosa revealed duodenitis, gastritis, both of which were nonerosive. There were few diminutive polyps in the stomach. In the lower esophagus, there was severe ulcerative esophagitis with ulcers which were shallow, but seen in the lower esophagus in a circumferential fashion. Biopsies of the duodenum, antrum, gastric polyps, and lower esophagus were submitted to pathology for review. Thereafter, a rectal exam was done. The colonoscope was introduced per rectum and advanced to the terminal ileum for about 10 cm. The colonoscope was then gradually withdrawn. The mucosa examined carefully. Examination of the colonic mucosa revealed internal hemorrhoids. There were no polyps or masses in the colon. The colonoscope was removed. The patient was sent to recovery in good condition. COMPLICATIONS: None. RECOMMENDATIONS: 1. Proton pump inhibitor. 2. Reflux precautions. 3. Follow up biopsy results. Blanca Archer M.D. DR: KONSTANTIN JOB#: [id number] CC:
[2020-01-20] VITALS: BP 130/64
[2020-01-20 04:00] VITALS: BP 115/59
--- NOTE | 2020-01-20 04:00 | Progress Note ---
DATE: 01/19/2020 CARDIOLOGY AND INTERNAL MEDICINE PROGRESS NOTE SUBJECTIVE: The patient completed workup today that included an endoscopy revealing gastritis and hemorrhoids. MRI and pelvic ultrasounds confirmed the absence of any ovarian mass. CA-125 was normal as well. The patient had an evidence of a renal cyst rather than a mass and a large fibroid in her uterus. OBJECTIVE: VITAL SIGNS: Blood pressure 112/62, heart rate 87, respirations 18, and afebrile. LUNGS: Clear. CARDIAC: Regular. ABDOMEN: Soft. Slightly distended. EXTREMITIES: No edema. IMPRESSION: 1. Pyelonephritis with E. coli and group B strep sensitive to all antimicrobials. 2. Severe protein-calorie malnutrition. 3. Iron deficiency anemia. 4. Gastritis. 5. Esophagitis. 6. Hemorrhoid. 7. Uterine fibroid. 8. Menorrhagia. 9. Newly diagnosed diabetes mellitus. PLAN: 1. Transition to oral therapy. 2. Will need diabetic education. 3. Discharge planning in progress. Esdras Sahu M.D. DR: VENU JOB#: [id number] CC:
[2020-01-20] MEDS: NovoLOG Insulin Flexpen SUBQ SCH ×4 (05:39→21:00)
--- NOTE | 2020-01-20 05:43 | NUR ---
NURSE NOTES: Patient given written education regarding diabetes.
[2020-01-20 05:53] LABS: HEMATOCRIT 23.2 % (37.0-47.0); MEAN CORPUSCULAR VOLUME 58 FL (80-99); PLATELET COUNT 389 K/UL (150-450); RED BLOOD COUNT 4.03 M/UL (4.20-5.40); RED CELL DISTRIBUTION WIDTH 15.9 % (11.6-14.8); WHITE BLOOD COUNT 8.5 K/UL (4.8-10.8)
[2020-01-20 06:13] LABS: ANION GAP 9 mmol/L (5-15); BLOOD UREA NITROGEN 1 mg/dL (7-18); CALCIUM 7.9 MG/DL (8.5-10.1); CARBON DIOXIDE 24 MMOL/L (21-32); CHLORIDE 104 MMOL/L (98-107); CREATININE 0.4 MG/DL (0.55-1.30); POTASSIUM 3.5 MMOL/L (3.5-5.1); SODIUM 137 MMOL/L (136-145)
--- NOTE | 2020-01-20 07:40 | NUR ---
HAND-OFF: Report given to BRY Gongora.
[2020-01-20 08:00] VITALS: BP 117/48
--- NOTE | 2020-01-20 08:00 | NUR ---
NURSE NOTES: Patient awake and alert and oriented,patient up and doing AM care, in room,no complaints at this time.
--- NOTE | 2020-01-20 08:23 | General Progress Note ---
Assessment/Plan Problem List: (1) Pyelonephritis ICD Codes: N12 - Tubulo-interstitial nephritis, not specified as acute or chronic SNOMED: 50266810 (2) Diabetes ICD Codes: E11.9 - Type 2 diabetes mellitus without complications SNOMED: 33078609 Assessment/Plan: continue Levemir 10 units daily continue Starlix 120 mg ac tid continue Januvia 100 mg daily continue Novolog sliding scale ac / hs Subjective Allergies: Coded Allergies: No Known Allergies (Verified Allergy, Unknown, 12/16/09) All Systems: reviewed and negative except above Subjective events noted glucose values improved Item Value Date Time Bedside Blood Glucose 134 mg/dl H 01/20/20 0539 Bedside Blood Glucose 190 mg/dl H 01/19/20 2100 Bedside Blood Glucose 169 mg/dl H 01/19/20 1719 Bedside Blood Glucose 168 mg/dl H 01/19/20 1213 Bedside Blood Glucose 174 mg/dl H 01/19/20 1045 Bedside Blood Glucose 177 mg/dl H 01/19/20 0543 Objective Last 24 Hour Vital Signs Date Time Temp Pulse Resp B/P (MAP) Pulse Ox O2 Delivery O2 Flow Rate FiO2 01/20/20 04:00 98.3 89 18 115/59 (77) 95 01/20/20 00:00 98.8 92 18 130/64 (86) 98 01/19/20 21:39 Room Air 01/19/20 20:00 98.9 97 18 127/62 (83) 98 01/19/20 16:00 98.3 87 18 112/62 (79) 97 01/19/20 09:41 92 18 98 01/19/20 09:40 98 01/19/20 09:31 96 18 01/19/20 09:20 98.4 93 20 99/50 96 Room Air 01/19/20 09:05 92 20 103/46 98 Nasal Cannula 3 01/19/20 09:00 Room Air 01/19/20 08:55 94 22 101/48 99 Nasal Cannula 3 01/19/20 08:50 94 23 100/51 100 Nasal Cannula 3 01/19/20 08:48 98.8 96 23 103/47 100 Nasal Cannula 3 Intake and Output 01/19/20 01/20/20 19:00 07:00 Intake Total 1140 ml 240 ml Balance 1140 ml 240 ml Intake Oral 240 ml 240 ml IV Total 900 ml # Voids 2 # Bowel Movements 1 1 Laboratory Tests 01/20/20 02:40: Urine Random Total Protein 42H, Urine Creatinine 55.3 01/20/20 04:50: White Blood Count 8.5, Red Blood Count 4.03L, Hemoglobin 7.0L, Hematocrit 23.2L , Mean Corpuscular Volume 58L, Mean Corpuscular Hemoglobin 17.4L, Mean Corpuscular Hemoglobin Concent 30.2L, Red Cell Distribution Width 15.9H, Platelet Count 389, Mean Platelet Volume 5.1L, Neutrophils (%) (Auto) , Lymphocytes (%) (Auto) , Monocytes (%) (Auto) , Eosinophils (%) (Auto) , Basophils (%) (Auto) , Sodium Level 137, Potassium Level 3.5, Chloride Level 104 , Carbon Dioxide Level 24, Anion Gap 9, Blood Urea Nitrogen 1L, Creatinine 0.4L , Estimat Glomerular Filtration Rate > 60, Glucose Level 138H, Calcium Level 7.9L, Magnesium Level 1.5L Height (Feet): 5 Height (Inches): 5.00 Weight (Pounds): 142 General Appearance: no apparent distress Neck: normal alignment Cardiovascular: normal rate Respiratory/Chest: lungs clear Abdomen: normal bowel sounds Pelvis: normal external exam Objective Current Medications Medications (Trade) Dose Ordered Sig/Remedios Route PRN Reason Start Time Stop Time Status Last Admin Dose Admin Acetaminophen (Tylenol) 650 mg Q4H PRN ORAL Temp >100.5 01/17/20 16:15 02/16/20 16:14 01/18/20 00:27 Acetaminophen (Tylenol) 650 mg Q4H PRN ORAL Mild Pain (Pain Scale 1-3) 01/17/20 16:45 02/16/20 16:44 Amoxicillin/ Clavulanate Potassium (Augmentin) 500 mg BID ORAL 01/20/20 09:00 01/27/20 08:59 Dextrose (Dextrose 50%) 25 ml Q30M PRN IV Hypoglycemia 01/18/20 16:15 04/17/20 16:14 Dextrose (Dextrose 50%) 50 ml Q30M PRN IV Hypoglycemia 01/18/20 16:15 04/17/20 16:14 Famotidine (Pepcid) 20 mg DAILY ORAL 01/17/20 09:00 04/16/20 08:59 6/8/20 10:38 Gadobutrol (Gadavist) 7.5 mmol ONCE PRN IV radiology procedure 01/17/20 16:45 01/20/20 16:44 Heparin Sodium (Porcine) (Heparin 5000 units/ml) 5,000 units EVERY 12 HOURS SUBQ 01/19/20 09:00 03/04/20 08:59 01/19/20 20:57 Insulin Aspart (NovoLOG) BEFORE MEALS AND HS SUBQ 01/17/20 06:30 04/16/20 06:29 01/19/20 20:56 Insulin Detemir (Levemir) 10 units DAILY SUBQ 01/18/20 17:00 04/17/20 16:59 01/19/20 10:45 Iron Sucrose 100 mg/Sodium Chloride 60 ml @ 240 mls/hr BEDTIME IV 01/17/20 21:00 01/21/20 21:14 01/19/20 20:54 Magnesium Hydroxide (Mom) 30 ml DAILYPRN PRN ORAL Constipation 01/17/20 01:30 02/16/20 01:29 Nateglinide (Starlix) 120 mg TIAC ORAL 01/17/20 16:30 02/16/20 16:29 01/20/20 06:37 Ondansetron HCl (Zofran) 4 mg Q6H PRN IVP Nausea & Vomiting 01/17/20 01:30 02/16/20 01:29 Pantoprazole (Protonix) 40 mg DAILY ORAL 01/19/20 09:00 02/18/20 08:59 01/19/20 10:38 Sitagliptin Phosphate (Januvia) 100 mg ACBREAKFAST ORAL 01/18/20 06:30 02/17/20 06:29 01/20/20 06:37 Jonn Grove MD Jan 20, 2020 08:23
[2020-01-20] MEDS: Heparin 5000 units/ml inj SUBQ SCH ×2 (09:00→21:55)
[2020-01-20] MEDS: Levemir Flexpen SUBQ SCH (09:09)
--- NOTE | 2020-01-20 11:07 | Infectious Diseases Prog Note ---
"Assessment/Plan Assessment/Plan antibiotics ceftriaxone A 1. e.coli | group B streptococcus pyelonephritis 2. leucocytosis improving 3. anemia 4. diabetes mellitus P 1. d/c ceftriaxone 2. start and continue po augmentin 5 more days 3. will follow up cultures Subjective Constitutional: Denies: fever, chills Respiratory: Denies: shortness of breath, dry cough Gastrointestinal/Abdominal: Denies: nausea, vomiting, diarrhea Musculoskeletal: Denies: pain Allergies: Coded Allergies: No Known Allergies (Verified Allergy, Unknown, 12/16/09) Objective Vital Signs Last 24 Hour Vital Signs Date Time Temp Pulse Resp B/P (MAP) Pulse Ox O2 Delivery O2 Flow Rate FiO2 01/20/20 09:27 Room Air 01/20/20 08:00 98.7 94 18 117/48 (71) 95 01/20/20 04:00 98.3 89 18 115/59 (77) 95 01/20/20 00:00 98.8 92 18 130/64 (86) 98 01/19/20 21:39 Room Air 01/19/20 20:00 98.9 97 18 127/62 (83) 98 01/19/20 16:00 98.3 87 18 112/62 (79) 97 Height (Feet): 5 Height (Inches): 5.00 Weight (Pounds): 142 Respiratory/Chest: lungs clear Cardiovascular: normal rate, regular rhythm, no gallop/murmur Abdomen: soft, non tender Extremities: no edema Laboratory Tests Test 01/20/20 02:40 01/20/20 04:50 Urine Random Total Protein 42 MG/DL (< 11.9) H Urine Creatinine 55.3 MG/DL (30.0-125.0) White Blood Count 8.5 K/UL (4.8-10.8) Red Blood Count 4.03 M/UL (4.20-5.40) L Hemoglobin 7.0 G/DL (12.0-16.0) L Hematocrit 23.2 % (37.0-47.0) L Mean Corpuscular Volume 58 FL (80-99) L Mean Corpuscular Hemoglobin 17.4 PG (27.0-31.0) L Mean Corpuscular Hemoglobin Concent 30.2 G/DL (32.0-36.0) L Red Cell Distribution Width 15.9 % (11.6-14.8) H Platelet Count 389 K/UL (150-450) Mean Platelet Volume 5.1 FL (6.5-10.1) L Neutrophils (%) (Auto) % (45.0-75.0) Lymphocytes (%) (Auto) % (20.0-45.0) Monocytes (%) (Auto) % (1.0-10.0) Eosinophils (%) (Auto) % (0.0-3.0) Basophils (%) (Auto) % (0.0-2.0) Sodium Level 137 MMOL/L (136-145) Potassium Level 3.5 MMOL/L (3.5-5.1) Chloride Level 104 MMOL/L (98-107) Carbon Dioxide Level 24 MMOL/L (21-32) Anion Gap 9 mmol/L (5-15) Blood Urea Nitrogen 1 mg/dL (7-18) L Creatinine 0.4 MG/DL (0.55-1.30) L Estimat Glomerular Filtration Rate > 60 mL/min (>60) Glucose Level 138 MG/DL (74-106) H Calcium Level 7.9 MG/DL (8.5-10.1) L Magnesium Level 1.5 MG/DL (1.8-2.4) L Current Medications Medications (Trade) Dose Ordered Sig/Remedios Route PRN Reason Start Time Stop Time Status Last Admin Dose Admin Acetaminophen (Tylenol) 650 mg Q4H PRN ORAL Temp >100.5 01/17/20 16:15 02/16/20 16:14 01/18/20 00:27 Acetaminophen (Tylenol) 650 mg Q4H PRN ORAL Mild Pain (Pain Scale 1-3) 01/17/20 16:45 02/16/20 16:44 Amoxicillin/ Clavulanate Potassium (Augmentin) 500 mg BID ORAL 01/20/20 09:00 01/27/20 08:59 01/20/20 09:12 Dextrose (Dextrose 50%) 25 ml Q30M PRN IV Hypoglycemia 01/18/20 16:15 04/17/20 16:14 Dextrose (Dextrose 50%) 50 ml Q30M PRN IV Hypoglycemia 01/18/20 16:15 04/17/20 16:14 Famotidine (Pepcid) 20 mg DAILY ORAL 01/17/20 09:00 04/16/20 08:59 01/20/20 09:10 Gadobutrol (Gadavist) 7.5 mmol ONCE PRN IV radiology procedure 01/17/20 16:45 01/20/20 16:44 Heparin Sodium (Porcine) (Heparin 5000 units/ml) 5,000 units EVERY 12 HOURS SUBQ 01/19/20 09:00 03/04/20 08:59 01/19/20 20:57 Insulin Aspart (NovoLOG) BEFORE MEALS AND HS SUBQ 01/17/20 06:30 04/16/20 06:29 01/19/20 20:56 Insulin Detemir (Levemir) 10 units DAILY SUBQ 01/18/20 17:00 04/17/20 16:59 01/20/20 09:09 Iron Sucrose 100 mg/Sodium Chloride 60 ml @ 240 mls/hr BEDTIME IV 01/17/20 21:00 01/21/20 21:14 01/19/20 20:54 Magnesium Hydroxide (Mom) 30 ml DAILYPRN PRN ORAL Constipation 01/17/20 01:30 02/16/20 01:29 Nateglinide (Starlix) 120 mg TIAC ORAL 01/17/20 16:30 02/16/20 16:29 01/20/20 06:37 Ondansetron HCl (Zofran) 4 mg Q6H PRN IVP Nausea & Vomiting 01/17/20 01:30 02/16/20 01:29 Pantoprazole (Protonix) 40 mg DAILY ORAL 01/19/20 09:00 02/18/20 08:59 01/20/20 09:10 Sitagliptin Phosphate (Januvia) 100 mg ACBREAKFAST ORAL 01/18/20 06:30 02/17/20 06:29 01/20/20 06:37 Jeana Tejeda MD Jan 20, 2020 11:07"
[2020-01-20 12:27] VITALS: BP 114/51
--- NOTE | 2020-01-20 16:18 | NUR ---
*-* INSURANCE *-* ALL CLINICALS AND REVIEW HAVE BEEN FAXED TO: [facility] ([facility] of [place]) Ref# [id number] #[phone] fax#[phone]
--- NOTE | 2020-01-20 16:28 | NUR ---
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 UTI 98.7 94 18 117/48 95% ON RA H/H 7.0/23.2 BUN1 CREAT 0.4 BG 138 CA+ 7.9 MG 1.5 IS: AMOXICILLIN PO BID PROTONIX PO QD JANUVIA QAC+HS IV VENOFER QHS X5BAGS STARLIX PO TIAC \:3E MED/SURG UNIT PLAN: POSSIBLE BLOOD TRANSFUSION MG REPLACEMENT
[2020-01-20 16:49] VITALS: BP 121/59
--- NOTE | 2020-01-20 18:00 | NUR ---
NURSE NOTES: Patient more receptive with Diabetic teaching.Patient magnesium level today 1.5,patient receiving Magnesium IVPB as ordered.DR Sahu also aware of patient Hemoglobin 7.0 and Hematocrit of 23.2.DR Sahu will discuss with patient treatment plan.
[2020-01-20] MEDS ORDERED: Iron Sucrose 100 MG in NS 55 ML IV ONE (18:15)
[2020-01-20] MEDS: metFORMIN 500mg tab ORAL SCH (18:56)
--- NOTE | 2020-01-20 19:49 | NUR ---
HAND-OFF: Report given to Herb LONDONO.
--- NOTE | 2020-01-20 19:49 | NUR ---
NURSE NOTES:Endorse to oncoming Nurse,patient has order to receive Venofer.Magnesuim still infusing.
--- NOTE | 2020-01-20 19:50 | NUR ---
NURSE NOTES: Pt. received from BRY Gongora. Pt. AAOx4, on room air, no indications of respiratory distress and no complaints of pain. IV running left ac intact and patent, currently running IV magnesium. Bed is low and locked, side rails x2 up, and call light in reach. Educated on use of call light to maintain safety, pt. verbalized understanding.
[2020-01-20 20:00] VITALS: BP 122/63
--- NOTE | 2020-01-20 21:08 | Nephrology Progress Note ---
Assessment/Plan Problem List: (1) UTI (urinary tract infection) (2) Malnutrition of moderate degree (3) Diabetes (4) Renal mass (5) Pyelonephritis Plan oral hydration,mriLeft upper pole renal lesion demonstrates overall decreased enhancement does not appear masslike on this or subsequent CT scan and most likely represents area of focal nephritis, particularly given laboratory evidence of pyelonephritis. Nonenhancing 3.4 cm left lower pole renal lesion, with complex signal characteristics on the precontrast sequences is consistent with a hemorrhagic or proteinaceous cyst, Bosniak category 2 continue diabetic teaching and antibiotics, can start metformin as contrast studies completed Subjective Constitutional: Reports: weakness HEENT: Reports: no symptoms Genitourinary: Reports: no symptoms Neurologic/Psychiatric: Reports: no symptoms Objective Objective Last 24 Hour Vital Signs Date Time Temp Pulse Resp B/P (MAP) Pulse Ox O2 Delivery O2 Flow Rate FiO2 01/20/20 16:49 98.3 84 18 121/59 (79) 97 01/20/20 12:27 97.9 86 18 114/51 (72) 96 01/20/20 09:27 Room Air 01/20/20 08:00 98.7 94 18 117/48 (71) 95 01/20/20 04:00 98.3 89 18 115/59 (77) 95 01/20/20 00:00 98.8 92 18 130/64 (86) 98 01/19/20 21:39 Room Air Intake and Output 01/19/20 01/20/20 19:00 07:00 Intake Total 1140 ml 240 ml Balance 1140 ml 240 ml Intake Oral 240 ml 240 ml IV Total 900 ml # Voids 2 # Bowel Movements 1 1 Laboratory Tests 01/20/20 02:40: Urine Random Total Protein 42H, Urine Creatinine 55.3 01/20/20 04:50: White Blood Count 8.5, Red Blood Count 4.03L, Hemoglobin 7.0L, Hematocrit 23.2L , Mean Corpuscular Volume 58L, Mean Corpuscular Hemoglobin 17.4L, Mean Corpuscular Hemoglobin Concent 30.2L, Red Cell Distribution Width 15.9H, Platelet Count 389, Mean Platelet Volume 5.1L, Neutrophils (%) (Auto) , Lymphocytes (%) (Auto) , Monocytes (%) (Auto) , Eosinophils (%) (Auto) , Basophils (%) (Auto) , Sodium Level 137, Potassium Level 3.5, Chloride Level 104 , Carbon Dioxide Level 24, Anion Gap 9, Blood Urea Nitrogen 1L, Creatinine 0.4L , Estimat Glomerular Filtration Rate > 60, Glucose Level 138H, Calcium Level 7.9L, Magnesium Level 1.5L Height (Feet): 5 Height (Inches): 5.00 Weight (Pounds): 142 General Appearance: no apparent distress EENT: normal ENT inspection Neck: normal alignment Cardiovascular: normal rate Respiratory/Chest: lungs clear Abdomen: non tender Extremities: trace edema 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
--- NOTE | 2020-01-20 22:48 | General Progress Note ---
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 Objective Last 24 Hour Vital Signs Date Time Temp Pulse Resp B/P (MAP) Pulse Ox O2 Delivery O2 Flow Rate FiO2 01/20/20 21:00 Room Air 01/20/20 20:00 98.2 84 20 122/63 (82) 98 01/20/20 16:49 98.3 84 18 121/59 (79) 97 01/20/20 12:27 97.9 86 18 114/51 (72) 96 01/20/20 09:27 Room Air 01/20/20 08:00 98.7 94 18 117/48 (71) 95 01/20/20 04:00 98.3 89 18 115/59 (77) 95 01/20/20 00:00 98.8 92 18 130/64 (86) 98 Intake and Output 01/19/20 01/20/20 19:00 07:00 Intake Total 1140 ml 240 ml Balance 1140 ml 240 ml Intake Oral 240 ml 240 ml IV Total 900 ml # Voids 2 # Bowel Movements 1 1 Laboratory Tests 01/20/20 02:40: Urine Random Total Protein 42H, Urine Creatinine 55.3 01/20/20 04:50: White Blood Count 8.5, Red Blood Count 4.03L, Hemoglobin 7.0L, Hematocrit 23.2L , Mean Corpuscular Volume 58L, Mean Corpuscular Hemoglobin 17.4L, Mean Corpuscular Hemoglobin Concent 30.2L, Red Cell Distribution Width 15.9H, Platelet Count 389, Mean Platelet Volume 5.1L, Neutrophils (%) (Auto) , Lymphocytes (%) (Auto) , Monocytes (%) (Auto) , Eosinophils (%) (Auto) , Basophils (%) (Auto) , Sodium Level 137, Potassium Level 3.5, Chloride Level 104 , Carbon Dioxide Level 24, Anion Gap 9, Blood Urea Nitrogen 1L, Creatinine 0.4L , Estimat Glomerular Filtration Rate > 60, Glucose Level 138H, Calcium Level 7.9L, Magnesium Level 1.5L Height (Feet): 5 Height (Inches): 5.00 Weight (Pounds): 142 Objective WNWD NCAT supple CTA RRR Abd soft no edema nonfocal Blanca Archer MD Jan 20, 2020 22:48
[2020-01-21] VITALS: BP 103/65
[2020-01-21 04:00] VITALS: BP_SYST 117; BP_SYST 138; BP_DIAS 67; BP_DIAS 74
[2020-01-21] MEDS: NovoLOG Insulin Flexpen SUBQ SCH ×4 (05:37→21:00)
--- NOTE | 2020-01-21 06:15 | Progress Note ---
DATE: 01/20/2020 CARDIOLOGY AND INTERNAL MEDICINE PROGRESS SUBJECTIVE: The patient with some abdominal pain. No new bleeding. PHYSICAL EXAMINATION: VITAL SIGNS: Vitals are stable. She is afebrile. LUNGS: Clear. CARDIAC: Regular. No murmur. ABDOMEN: Soft. No tenderness. No CVA tenderness. EXTREMITIES: No edema. IMPRESSION: 1. Iron-deficiency anemia. 2. Hemorrhoids. 3. Gastroesophageal reflux disease with ulcerations. 4. Uterine fibroids. 5. Pyelonephritis. PLAN: 1. Iron replacement. 2. Proton pump inhibitor. 3. Antimicrobials. 4. Followup hemoglobin, consider transfusion. 5. Diabetic therapy titration. 6. Newly-diagnosed diabetes mellitus type 2. Esdras Sahu M.D. DR: Eve JOB#: [id number] CC:
[2020-01-21 06:31] LABS: HEMATOCRIT 24.1 % (37.0-47.0); HEMOGLOBIN 7.4 G/DL (12.0-16.0); MEAN CORPUSCULAR VOLUME 58 FL (80-99); PLATELET COUNT 457 K/UL (150-450); RED BLOOD COUNT 4.16 M/UL (4.20-5.40); RED CELL DISTRIBUTION WIDTH 16.7 % (11.6-14.8); WHITE BLOOD COUNT 12.9 K/UL (4.8-10.8)
[2020-01-21 06:43] LABS: ANION GAP 10 mmol/L (5-15); BLOOD UREA NITROGEN 3 mg/dL (7-18); CALCIUM 7.7 MG/DL (8.5-10.1); CARBON DIOXIDE 26 MMOL/L (21-32); CHLORIDE 103 MMOL/L (98-107); CREATININE 0.7 MG/DL (0.55-1.30); POTASSIUM 3.6 MMOL/L (3.5-5.1); SODIUM 139 MMOL/L (136-145)
--- NOTE | 2020-01-21 06:56 | General Progress Note ---
Assessment/Plan Problem List: (1) Pyelonephritis ICD Codes: N12 - Tubulo-interstitial nephritis, not specified as acute or chronic SNOMED: 98121755 (2) Diabetes ICD Codes: E11.9 - Type 2 diabetes mellitus without complications SNOMED: 53902683 Assessment/Plan: no need for Levemir - already DC'ed continue Metformin 1000 mg bid continue Starlix 120 mg ac tid continue Januvia 100 mg daily no need for insulin after DC Rx for testing supplies and diabetic medication left with RN Tye Estevez Subjective Allergies: Coded Allergies: No Known Allergies (Verified Allergy, Unknown, 12/16/09) All Systems: reviewed and negative except above Subjective events noted glucose values are stable no complaints Item Value Date Time Bedside Blood Glucose 151 mg/dl H 01/21/20 0630 Bedside Blood Glucose 123 mg/dl H 01/20/20 2100 Bedside Blood Glucose 108 mg/dl 01/20/20 1651 Bedside Blood Glucose 101 mg/dl 01/20/20 1144 Bedside Blood Glucose 134 mg/dl H 01/20/20 0909 Objective Last 24 Hour Vital Signs Date Time Temp Pulse Resp B/P (MAP) Pulse Ox O2 Delivery O2 Flow Rate FiO2 01/21/20 04:00 98.1 85 21 117/67 (84) 98 01/21/20 00:00 98.2 83 20 103/65 (78) 98 01/20/20 21:00 Room Air 01/20/20 20:00 98.2 84 20 122/63 (82) 98 01/20/20 16:49 98.3 84 18 121/59 (79) 97 01/20/20 12:27 97.9 86 18 114/51 (72) 96 01/20/20 09:27 Room Air 01/20/20 08:00 98.7 94 18 117/48 (71) 95 Intake and Output 01/20/20 01/21/20 19:00 07:00 Intake Total 480 ml 460 ml Output Total 400 ml Balance 80 ml 460 ml Intake Oral 480 ml 400 ml IV Total 60 ml Output Urine Total 400 ml # Voids 1 # Bowel Movements 1 1 Laboratory Tests 01/21/20 05:20: White Blood Count [Pending], Red Blood Count [Pending], Hemoglobin [Pending], Hematocrit [Pending], Mean Corpuscular Volume [Pending], Mean Corpuscular Hemoglobin [Pending], Mean Corpuscular Hemoglobin Concent [Pending], Red Cell Distribution Width [Pending], Platelet Count [Pending], Mean Platelet Volume [ Pending], Neutrophils (%) (Auto) [Pending], Lymphocytes (%) (Auto) [Pending], Monocytes (%) (Auto) [Pending], Eosinophils (%) (Auto) [Pending], Basophils (%) (Auto) [Pending], Sodium Level 139, Potassium Level 3.6, Chloride Level 103, Carbon Dioxide Level 26, Anion Gap 10, Blood Urea Nitrogen 3L, Creatinine 0.7#, Estimat Glomerular Filtration Rate > 60, Glucose Level 157H, Calcium Level 7.7L Height (Feet): 5 Height (Inches): 5.00 Weight (Pounds): 159 General Appearance: no apparent distress Neck: normal alignment Cardiovascular: normal rate Respiratory/Chest: lungs clear Abdomen: normal bowel sounds Pelvis: normal external exam Objective Current Medications Medications (Trade) Dose Ordered Sig/Remedios Route PRN Reason Start Time Stop Time Status Last Admin Dose Admin Acetaminophen (Tylenol) 650 mg Q4H PRN ORAL Temp >100.5 01/17/20 16:15 02/16/20 16:14 01/18/20 00:27 Acetaminophen (Tylenol) 650 mg Q4H PRN ORAL Mild Pain (Pain Scale 1-3) 01/17/20 16:45 02/16/20 16:44 Amoxicillin/ Clavulanate Potassium (Augmentin) 500 mg BID ORAL 01/20/20 09:00 01/27/20 08:59 01/20/20 18:55 Dextrose (Dextrose 50%) 25 ml Q30M PRN IV Hypoglycemia 01/18/20 16:15 04/17/20 16:14 Dextrose (Dextrose 50%) 50 ml Q30M PRN IV Hypoglycemia 01/18/20 16:15 04/17/20 16:14 Famotidine (Pepcid) 20 mg DAILY ORAL 01/17/20 09:00 04/16/20 08:59 01/20/20 09:10 Heparin Sodium (Porcine) (Heparin 5000 units/ml) 5,000 units EVERY 12 HOURS SUBQ 01/19/20 09:00 03/04/20 08:59 01/19/20 20:57 Insulin Aspart (NovoLOG) BEFORE MEALS AND HS SUBQ 01/17/20 06:30 04/16/20 06:29 01/21/20 05:37 Magnesium Hydroxide (Mom) 30 ml DAILYPRN PRN ORAL Constipation 01/17/20 01:30 02/16/20 01:29 01/21/20 03:55 Metformin HCl (Glucophage) 1,000 mg BID ORAL 01/20/20 18:00 02/19/20 17:59 01/20/20 18:56 Nateglinide (Starlix) 120 mg TIAC ORAL 01/17/20 16:30 02/16/20 16:29 01/21/20 05:35 Ondansetron HCl (Zofran) 4 mg Q6H PRN IVP Nausea & Vomiting 01/17/20 01:30 02/16/20 01:29 Pantoprazole (Protonix) 40 mg DAILY ORAL 01/19/20 09:00 02/18/20 08:59 01/20/20 09:10 Sitagliptin Phosphate (Januvia) 100 mg ACBREAKFAST ORAL 01/18/20 06:30 02/17/20 06:29 01/21/20 05:35 Jonn Grove MD Jan 21, 2020 06:56
--- NOTE | 2020-01-21 07:38 | NUR ---
HAND-OFF: Report given to BRY Slaughter.
--- NOTE | 2020-01-21 07:45 | NUR ---
NURSE NOTES: Pt. received from BRY Estevez. Pt. A&Ox4, on room air, No acute distress noted. pt denies any pain at this time. IV site intact and patent. Bed is low and locked, side rails x2 up, and call light in reach. Will continue to monitor.
[2020-01-21 08:00] VITALS: BP 112/57
[2020-01-21] MEDS: Heparin 5000 units/ml inj SUBQ SCH ×2 (09:00→21:00)
[2020-01-21] MEDS: metFORMIN 500mg tab ORAL SCH ×2 (09:41→18:00)
--- NOTE | 2020-01-21 11:52 | NUR ---
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 GASTRITIS . GASTRIC POLYP HEMORRHOIDS PYELONEPHRITIS . UTI E.COLI . ANEMIA 98.1 85 21 117/67 98% ON RA WBC 12.9 H/H 7.4/24.1 BUN 3 BG 157 CA+ 7.7 IS: AMOXICILLIN PO BID PROTONIX PO QD JANUVIA QAC+HS STARLIX PO TIAC METFORMIN PO BID NOVOLOG SQ AC+HS \:3E MED/SURG UNIT PLAN: DC PLANNING FOR HOME
[2020-01-21 12:00] VITALS: BP 109/57
--- NOTE | 2020-01-21 13:26 | Nephrology Progress Note ---
Assessment/Plan Problem List: (1) UTI (urinary tract infection) (2) Malnutrition of moderate degree (3) Diabetes (4) Renal mass (5) Pyelonephritis Plan oral hydration,mriLeft upper pole renal lesion demonstrates overall decreased enhancement does not appear masslike on this or subsequent CT scan and most likely represents area of focal nephritis, particularly given laboratory evidence of pyelonephritis. Nonenhancing 3.4 cm left lower pole renal lesion, with complex signal characteristics on the precontrast sequences is consistent with a hemorrhagic or proteinaceous cyst, Bosniak category 2 continue diabetic teaching and antibiotics, can start metformin as contrast studies completed Subjective Constitutional: Reports: weakness HEENT: Reports: no symptoms Genitourinary: Reports: no symptoms Neurologic/Psychiatric: Reports: no symptoms Objective Objective Last 24 Hour Vital Signs Date Time Temp Pulse Resp B/P (MAP) Pulse Ox O2 Delivery O2 Flow Rate FiO2 01/21/20 04:00 98.1 85 21 117/67 (84) 98 01/21/20 00:00 98.2 83 20 103/65 (78) 98 01/20/20 21:00 Room Air 01/20/20 20:00 98.2 84 20 122/63 (82) 98 01/20/20 16:49 98.3 84 18 121/59 (79) 97 Intake and Output 01/20/20 01/21/20 19:00 07:00 Intake Total 480 ml 460 ml Output Total 400 ml Balance 80 ml 460 ml Intake Oral 480 ml 400 ml IV Total 60 ml Output Urine Total 400 ml # Voids 1 # Bowel Movements 1 1 Laboratory Tests 01/21/20 05:20: White Blood Count 12.9#H, Red Blood Count 4.16L, Hemoglobin 7.4L, Hematocrit 24.1L, Mean Corpuscular Volume 58L, Mean Corpuscular Hemoglobin 17.7L, Mean Corpuscular Hemoglobin Concent 30.6L, Red Cell Distribution Width 16.7H, Platelet Count 457H, Mean Platelet Volume 5.2L, Neutrophils (%) (Auto) , Lymphocytes (%) (Auto) , Monocytes (%) (Auto) , Eosinophils (%) (Auto) , Basophils (%) (Auto) , Differential Total Cells Counted 100, Neutrophils % ( Manual) 87H, Lymphocytes % (Manual) 6L, Monocytes % (Manual) 7, Eosinophils % ( Manual) 0, Basophils % (Manual) 0, Band Neutrophils 0, Nucleated Red Blood Cells 1, Platelet Estimate Adequate, Platelet Morphology Normal, Hypochromasia 3 +, Anisocytosis 1+, Microcytosis 3+, Sodium Level 139, Potassium Level 3.6, Chloride Level 103, Carbon Dioxide Level 26, Anion Gap 10, Blood Urea Nitrogen 3L, Creatinine 0.7#, Estimat Glomerular Filtration Rate > 60, Glucose Level 157H , Calcium Level 7.7L Height (Feet): 5 Height (Inches): 5.00 Weight (Pounds): 159 General Appearance: no apparent distress EENT: normal ENT inspection Neck: normal alignment Cardiovascular: regular rhythm Respiratory/Chest: lungs clear Abdomen: non tender Extremities: trace edema Neurologic: cathode washer II-XII grossly normal Usama Travis MD Jan 21, 2020 13:26
--- NOTE | 2020-01-21 15:23 | Infectious Diseases Prog Note ---
"Assessment/Plan Assessment/Plan A 1. E.coli | group B streptococcus pyelonephritis 2. leucocytosis 3. anemia 4. diabetes mellitus P 1. continue PO Augmentin 4 more days Subjective ROS Limited/Unobtainable: No HEENT: Reports: no symptoms Respiratory: Reports: no symptoms Cardiovascular: Reports: no symptoms Gastrointestinal/Abdominal: Reports: no symptoms Genitourinary: Reports: no symptoms Allergies: Coded Allergies: No Known Allergies (Verified Allergy, Unknown, 12/16/09) Objective Vital Signs Last 24 Hour Vital Signs Date Time Temp Pulse Resp B/P (MAP) Pulse Ox O2 Delivery O2 Flow Rate FiO2 01/21/20 12:00 99.0 89 18 109/57 (74) 98 01/21/20 09:00 Room Air 01/21/20 08:00 98.9 92 20 112/57 (75) 98 01/21/20 04:00 98.1 85 21 117/67 (84) 98 01/21/20 00:00 98.2 83 20 103/65 (78) 98 01/20/20 21:00 Room Air 01/20/20 20:00 98.2 84 20 122/63 (82) 98 01/20/20 16:49 98.3 84 18 121/59 (79) 97 Height (Feet): 5 Height (Inches): 5.00 Weight (Pounds): 159 General Appearance: no acute distress HEENT: mucous membranes moist Respiratory/Chest: lungs clear Cardiovascular: normal rate Abdomen: soft, non tender Extremities: other - legs edema Neurologic/Psychiatric: alert, oriented x 3, responsive Laboratory Tests Test 01/21/20 05:20 White Blood Count 12.9 K/UL (4.8-10.8) #H Red Blood Count 4.16 M/UL (4.20-5.40) L Hemoglobin 7.4 G/DL (12.0-16.0) L Hematocrit 24.1 % (37.0-47.0) L Mean Corpuscular Volume 58 FL (80-99) L Mean Corpuscular Hemoglobin 17.7 PG (27.0-31.0) L Mean Corpuscular Hemoglobin Concent 30.6 G/DL (32.0-36.0) L Red Cell Distribution Width 16.7 % (11.6-14.8) H Platelet Count 457 K/UL (150-450) H Mean Platelet Volume 5.2 FL (6.5-10.1) L Neutrophils (%) (Auto) % (45.0-75.0) Lymphocytes (%) (Auto) % (20.0-45.0) Monocytes (%) (Auto) % (1.0-10.0) Eosinophils (%) (Auto) % (0.0-3.0) Basophils (%) (Auto) % (0.0-2.0) Differential Total Cells Counted 100 Neutrophils % (Manual) 87 % (45-75) H Lymphocytes % (Manual) 6 % (20-45) L Monocytes % (Manual) 7 % (1-10) Eosinophils % (Manual) 0 % (0-3) Basophils % (Manual) 0 % (0-2) Band Neutrophils 0 % (0-8) Nucleated Red Blood Cells 1 /100 WBC Platelet Estimate Adequate Platelet Morphology Normal Hypochromasia 3+ Anisocytosis 1+ Microcytosis 3+ Sodium Level 139 MMOL/L (136-145) Potassium Level 3.6 MMOL/L (3.5-5.1) Chloride Level 103 MMOL/L (98-107) Carbon Dioxide Level 26 MMOL/L (21-32) Anion Gap 10 mmol/L (5-15) Blood Urea Nitrogen 3 mg/dL (7-18) L Creatinine 0.7 MG/DL (0.55-1.30) # Estimat Glomerular Filtration Rate > 60 mL/min (>60) Glucose Level 157 MG/DL (74-106) H Calcium Level 7.7 MG/DL (8.5-10.1) L Current Medications Medications (Trade) Dose Ordered Sig/Remedios Route PRN Reason Start Time Stop Time Status Last Admin Dose Admin Acetaminophen (Tylenol) 650 mg Q4H PRN ORAL Temp >100.5 01/17/20 16:15 02/16/20 16:14 01/18/20 00:27 Acetaminophen (Tylenol) 650 mg Q4H PRN ORAL Mild Pain (Pain Scale 1-3) 01/17/20 16:45 02/16/20 16:44 Amoxicillin/ Clavulanate Potassium (Augmentin) 500 mg BID ORAL 01/20/20 09:00 01/27/20 08:59 01/21/20 09:41 Dextrose (Dextrose 50%) 25 ml Q30M PRN IV Hypoglycemia 01/18/20 16:15 04/17/20 16:14 Dextrose (Dextrose 50%) 50 ml Q30M PRN IV Hypoglycemia 01/18/20 16:15 04/17/20 16:14 Famotidine (Pepcid) 20 mg DAILY ORAL 01/17/20 09:00 04/16/20 08:59 01/21/20 09:41 Heparin Sodium (Porcine) (Heparin 5000 units/ml) 5,000 units EVERY 12 HOURS SUBQ 01/19/20 09:00 03/04/20 08:59 01/19/20 20:57 Insulin Aspart (NovoLOG) BEFORE MEALS AND HS SUBQ 01/17/20 06:30 04/16/20 06:29 01/21/20 05:37 Magnesium Hydroxide (Mom) 30 ml DAILYPRN PRN ORAL Constipation 01/17/20 01:30 02/16/20 01:29 01/21/20 03:55 Metformin HCl (Glucophage) 1,000 mg BID ORAL 01/20/20 18:00 02/19/20 17:59 01/21/20 09:41 Nateglinide (Starlix) 120 mg TIAC ORAL 01/17/20 16:30 02/16/20 16:29 01/21/20 05:35 Ondansetron HCl (Zofran) 4 mg Q6H PRN IVP Nausea & Vomiting 01/17/20 01:30 02/16/20 01:29 Pantoprazole (Protonix) 40 mg DAILY ORAL 01/19/20 09:00 02/18/20 08:59 01/21/20 09:41 Sitagliptin Phosphate (Januvia) 100 mg ACBREAKFAST ORAL 01/18/20 06:30 02/17/20 06:29 01/21/20 05:35 Feng Dukes MD Jan 21, 2020 15:23"
[2020-01-21 16:00] VITALS: BP 110/52
--- NOTE | 2020-01-21 19:15 | NUR ---
NURSE NOTES: Received report from BRY Ramos. Pt is awake, lying semi-samayoa's; comfortably resting. Pt denies of any pain at this time. No signs of acute distress noted. AOx4; able to make needs known. No IV site noted. No erythema, bleeding, or infiltration noted. Pt has a discharge order and will carry out order. Bed at lowest position. Brakes on. Siderails up x3. Call light within reach. Will continue to monitor.
--- NOTE | 2020-01-21 19:35 | NUR ---
HAND-OFF: Report given to BRY Gutierrez.
[2020-01-21 20:00] VITALS: BP 103/58
--- NOTE | 2020-01-21 21:00 | NUR ---
NURSE NOTES: Pt left the unit at 2100 via wheelchair accompanied by Dean, relief mate. Pt's belonging's list checked and signed by patient and primary RN. Pt was educated and given the discharge packet as well as home prescriptions. Pt left the unit in stable condition and in no distress noted.
--- NOTE | 2020-01-21 22:22 | General Progress Note ---
Assessment/Plan Assessment/Plan: Assessment - Iron deficiency anemia - LUQ abd pain - nausea/vomiting, anorexia - pelvic mass / abnormalities on CT - GERD, ulcerative Recommendations - Acid Blockade - IV Fe - f/u path - w/u of pelvic abnormalities Subjective Allergies: Coded Allergies: No Known Allergies (Verified Allergy, Unknown, 12/16/09) Subjective feels OK seen earlier today d/c planning noted Objective Last 24 Hour Vital Signs Date Time Temp Pulse Resp B/P (MAP) Pulse Ox O2 Delivery O2 Flow Rate FiO2 01/21/20 20:00 99.4 84 19 103/58 (73) 94 01/21/20 16:00 98.7 80 18 110/52 (71) 98 01/21/20 12:00 99.0 89 18 109/57 (74) 98 01/21/20 09:00 Room Air 01/21/20 08:00 98.9 92 20 112/57 (75) 98 01/21/20 04:00 98.1 85 21 117/67 (84) 98 01/21/20 00:00 98.2 83 20 103/65 (78) 98 Intake and Output 01/20/20 01/21/20 19:00 07:00 Intake Total 480 ml 460 ml Output Total 400 ml Balance 80 ml 460 ml Intake Oral 480 ml 400 ml IV Total 60 ml Output Urine Total 400 ml # Voids 1 # Bowel Movements 1 1 Laboratory Tests 01/21/20 05:20: White Blood Count 12.9#H, Red Blood Count 4.16L, Hemoglobin 7.4L, Hematocrit 24.1L, Mean Corpuscular Volume 58L, Mean Corpuscular Hemoglobin 17.7L, Mean Corpuscular Hemoglobin Concent 30.6L, Red Cell Distribution Width 16.7H, Platelet Count 457H, Mean Platelet Volume 5.2L, Neutrophils (%) (Auto) , Lymphocytes (%) (Auto) , Monocytes (%) (Auto) , Eosinophils (%) (Auto) , Basophils (%) (Auto) , Differential Total Cells Counted 100, Neutrophils % ( Manual) 87H, Lymphocytes % (Manual) 6L, Monocytes % (Manual) 7, Eosinophils % ( Manual) 0, Basophils % (Manual) 0, Band Neutrophils 0, Nucleated Red Blood Cells 1, Platelet Estimate Adequate, Platelet Morphology Normal, Hypochromasia 3 +, Anisocytosis 1+, Microcytosis 3+, Sodium Level 139, Potassium Level 3.6, Chloride Level 103, Carbon Dioxide Level 26, Anion Gap 10, Blood Urea Nitrogen 3L, Creatinine 0.7#, Estimat Glomerular Filtration Rate > 60, Glucose Level 157H , Calcium Level 7.7L Height (Feet): 5 Height (Inches): 5.00 Weight (Pounds): 159 Objective WNWD NCAT supple CTA RRR Abd soft no edema nonfocal Blanca Archer MD Jan 21, 2020 22:22
--- NOTE | 2020-01-22 16:18 | NUR ---
*-* INSURANCE *-* ALL CLINICALS AND REVIEW HAVE BEEN FAXED WITH THE EXCEPTION OF DISCHARGE SUMMARY NOT IN THE SYSTEM [facility] (BX/BS of [place]) Ref# [id number] #[phone] fax#[phone]
--- NOTE | 2020-01-23 12:37 | Discharge Summary ---
Discharge Summary Discharge Summary _ DATE OF ADMISSION: 01/16/2020 DATE OF DISCHARGE: 01/21/2020 DISCHARGED BY: REASON FOR ADMISSION: 54 years old female with unremarkable past medical history, presented to emergency department complaining of bilateral flank pain and suprapubic discomfort. Patient reported chills and subjective fever at home. She denied hematuria. Patient reported menometrorrhagia and stated that she was perimenopausal. Patient noted irregular menses as a result. Patient with a history of drainage of ovarian cyst in the past. Upon evaluation patient was mildly tachycardic. Laboratory work-up revealed leukocytosis WBC 14.1, hemoglobin 9.3, hematocrit 33.3, platelet count 333. Urinalysis revealed +3 protein ,+5 blood, +2 leukocyte esterase, pyuria and moderate bacteria. Sodium 134, chloride 93. Potassium 4.3. BUN 20, creatinine 0.9. Glucose 352. AST 20, ALT 22, lipase 245. CT of the abdomen and pelvis revealed moderate to large area of irregular low attenuation in the left kidney with adjacent perinephric stranding. Possibly reflecting a region of pyelonephritis. Mass lesion cannot be excluded. Irregular heterogeneous uterus with endometrial thickening Bladder wall thickening with reticulation , may reflect cystitis In emergency department patient pancultured, started on empiric antibiotics and admitted for further management. CONSULTANTS: ID specialist Dr. Tejeda GI specialist Dr. Arhcer chain dyer Dr. Travis heel seat flap stapler Dr. Grove HOSPITAL COURSE: Patient admitted to medical surgical floor and started on IV fluids and empiric antibiotic. Urine culture revealed E. coli and Strep group B. Renal ultrasound demonstrated 8.1 x 6.5 cm mass lesion seen in the central pelvis, and in comparison to the CT exam from the prior day this may instead represent the heterogeneous right adnexal lesion or possibly heterogeneous uterus, seen on that exam. Urinary bladder appeared normal on the recent CT exam. It was s likely the urinary bladder was contracted/decompressed on this exam and therefore remained incompletely evaluated. If this was indeed the urinary bladder , than this may represent a bladder mass or luminal debris. Recommend further evaluation with contrast-enhanced CT 2.9 x 2.7 x 2.5 cm complex hypoechoic cyst in the left lower renal pole with subtle internal septation and possible nodularity. This has features of a Bosniak category IIF or category III cyst. Antibiotics provided as per ID specialist recommendation. Urine culture revealed E. coli and group B streptococci. Patient was on IV antibiotic while in the hospital and changed to oral upon discharge to complete the course. Fevers noted on the first day after admission , resolved. Pain management was addressed. Renal parameters and electrolytes were closely monitored. Electrolytes corrected as needed. Nephrotoxins were avoided. Product Development Intern followed. Oral hydration was encouraged. Patient subsequently undergone repeated CT scan of the abdomen and pelvis on which revealed cyst in the lower pole of the left kidney, presumably representing a proteinaceous Bosniak 2 cyst. Left upper pole renal hypoperfusion again noted, appearance was suggestive of acute nephritis. This also correlated with findings on previous exams. Uterine fundal mass, presumably a large fibroid, also previously reported Hemoglobin and hematocrit were closely monitored with goal to keep hemoglobin above 7. Stool for occult blood was negative. Anemia work-up revealed evidence of anemia of chronic disease. Ca 125 within normal limits Protein supplements provided as per registered dietitian recommendation. Blood sugar was closely monitored. Patient was newly diagnosed with diabetes mellitus. Blood sugar was managed as per heel seat flap stapler recommendation. While in the hospital blood sugar was managed with long-acting Levemir and sliding scale of insulin. Hemoglobin A1c 15.5. Diabetic diet and diabetic teaching provided. Per heel seat flap stapler recommendation, at home continue metformin, Starlix and Januvia. No need for insulin after discharge. Patient provided prescription for testing supplies and diabetic medications. GI specialist followed for anemia. Patient undergone upper endoscopy with biopsy and colonoscopy. Findings included severe ulcerative esophagitis with erosion and ulcer in the lower esophagus, mild gastritis, mild duodenitis and internal hemorrhoids. Aspiration and reflux precautions maintained. Patient started on PPI. Pathology of duodenum revealed active peptic duodenitis with healing erosion. Biopsy of antrum showed mild chronic gastritis without activity; no H. pylori infection was identified. Biopsy of gastric polyp revealed no dysplasia or malignancy , no H. pylori. Moderate chronic gastritis. Biopsy of lower esophagus revealed squamocolumnar junctional mucosa with erosion and dense mixed inflammation. No evidence of fungal organisms or viral change. No intestinal metaplasia dysplasia or malignancy. Patient clinically stabilized and was ready for discharge home. FINAL DIAGNOSES: E. coli and group B streptococci pyelonephritis Iron deficiency anemia Status post EGD and colonoscopy with biopsy Severe ulcerative esophagitis with erosion and ulcer in the lower esophagus Mild gastritis Mild duodenitis Internal hemorrhoids Diabetes mellitus , newly diagnosed , with hemoglobin A1c 15.5 Uterine fibroids Severe protein calorie malnutrition Menorrhagia DISCHARGE MEDICATIONS: List of discharge medication and prescriptions provided to patient. DISCHARGE INSTRUCTIONS: Patient was discharged home. Follow-up with a primary care provider in 1 week. Patient to follow-up with nonemergent NARCOTICS INVESTIGATOR evaluation and pelvic ultrasound. I have been assigned to dictate discharge summary for this account. I was not involved in the patient's management. Renée Hardwick NP Jan 23, 2020 12:37
--- NOTE | 2020-01-23 14:51 | NUR ---
*-* INSURANCE *-* DISCHARGE SUMMARY HAS BEEN FAXED [place] [facility] (ALBERT[place]/F[place] of [place]) Ref# [id number] #[phone] fax#[phone]
== END 2020-01-21 21:00 | disposition home or self-care (01) | DRG 689 ==
LOC: EMR 18:20 → 3E 21:25 → EDBEDREQ 01-17 01:11
DX: N12 Tubulo-interstitial nephritis, not specified as acute or chronic (principal); E43 Unspecified severe protein-calorie malnutrition; K22.10 Ulcer of esophagus without bleeding; B96.20 Unspecified Escherichia coli [E. coli] as the cause of diseases classified elsewhere; D50.9 Iron deficiency anemia, unspecified; E11.9 Type 2 diabetes mellitus without complications; D25.9 Leiomyoma of uterus, unspecified; K29.70 Gastritis, unspecified, without bleeding; K44.9 Diaphragmatic hernia without obstruction or gangrene; K29.80 Duodenitis without bleeding; K64.8 Other hemorrhoids; B95.1 Streptococcus, group B, as the cause of diseases classified elsewhere; N92.1 Excessive and frequent menstruation with irregular cycle; N28.9 Disorder of kidney and ureter, unspecified; K31.7 Polyp of stomach and duodenum; N28.1 Cyst of kidney, acquired
CPT/HCPCS: 36415; 74177; 74178; 74183; 76770; 76830; 76856; 80048; 80053; 81003; 82044; 82270; 82570; 82962; 83036; 83540; 83550; 83690; 83735; 84443; 85007; 85025; 85610; 85730; 86304; 86850; 86900; 86901; 87086; 87181; 94003; 94150; 96361; 96365; 96367; 96375; 99285; A9585; J1815; J2405; J7030; S5561